=== PATIENT | male | born 1965 | race Two or more races ===

== ENCOUNTER 2019-01-23 10:51 | Inpatient (IN) | payer BC, OTHER ==
[~2019-01-23] VITALS: Ht 175.3 cm; Wt 68.1 kg
[2019-01-23 12:02] LABS: Basophils # (auto) 0.1 uL; Basophils % (auto) 0.3 % (0.0-2.0); Eosinophils # (auto) 0 uL; Hematocrit 41.4 % (41.0-53.0); Hemoglobin 13.3 g/dL (13.5-17.5); Lymphocytes # (auto) 0.3 uL; Lymphocytes % (auto) 1.7 % (10.0-50.0); Mean Corpuscular Hemoglobin 29.2 pg (28.0-32.0); Mean Corpuscular Hgb Conc. 32.1 g/dL (32.0-36.0); Monocytes # (auto) 0.6 uL; Monocytes % (auto) 3.5 % (0.0-12.0); Neutrophils # (auto) 15.1 uL; Neutrophils % (auto) 94.5 % (37.0-80.0); Platelet Count (auto) 426 10^3/uL (140-450); Red Blood Cells 4.55 10^6/uL (4.5-5.90); Red Cell Distribution Width 14.2 % (11.8-14.3)
[2019-01-23 12:18] LABS: Albumin 1.8 g/dL (3.4-5.0); Calcium 9.8 mg/dL (8.5-10.1); Potassium 4.1 mmol/L (3.5-5.1)
[2019-01-23 12:20] LABS: BUN/Creatinine Ratio 26.1; Bilirubin, Total 0.5 mg/dL (0.2-1.0); Total Protein 7.2 g/dL (6.4-8.2)
[2019-01-23] MEDS ORDERED: InsuLIN R (HUMAN) 100 UNITS in SODIUM CHL 0.9% 99 ML IV SCH (20:26)
[2019-01-23] MEDS ORDERED: SODIUM CHLORIDE 0.9% 1,000 ML IVB ONE (20:26)
[2019-01-23] MEDS ORDERED: SODIUM CHLORIDE 0.9% 1,000 ML IV ONE (20:30)
[2019-01-23] MEDS ORDERED: cefTRIAXone 1GM/50ML D5W 50 ML IV ONE (20:30)
[2019-01-23] MEDS ORDERED: DEXTROSE (50%) 50ML SYRG IV PRN (20:30)
[2019-01-23] MEDS ORDERED: CLINDAMYCIN 600MG IV 50 ML IV ONE (21:45)
[2019-01-23] MEDS ORDERED: TETANUS-DIPTH-ACEL PERTUSSIS 0.5ML SYRG IM ONE (21:45)
[2019-01-23 22:23] LABS: Magnesium 2.4 mg/dL (1.6-2.6)
[2019-01-23] MEDS: ACCU-CHEK COMFORT CURVE STRIP VI SCH ×2 (22:36→22:48)
[2019-01-23 22:52] LABS: BUN/Creatinine Ratio 30.2; Potassium 4.2 mmol/L (3.5-5.1)
[2019-01-23 22:53] LABS: INR 1.05 (0.9-1.15); Partial Thromboplastin Time 28.6 sec (23.78-33.04); Prothrombin Time 11.2 sec (9.27-12.13)
[2019-01-24] MEDS: ACCU-CHEK COMFORT CURVE STRIP VI SCH ×17 (00:30→20:00)
[2019-01-24] MEDS ORDERED: SODIUM CHLORIDE 0.9% 1,000 ML IV SCH (02:26)
[2019-01-24 02:48] LABS: Calcium 8.1 mg/dL (8.5-10.1); Potassium 3.5 mmol/L (3.5-5.1)
[2019-01-24] MEDS: InsuLIN R (HUMAN) 100 UNITS in SODIUM CHL 0.9% 99 ML IV SCH ×2 (02:53→03:00)
[2019-01-24] MEDS ORDERED: ONDANSETRON HCL 4 MG/2 ML VIAL IV PRN (03:00)
[2019-01-24] MEDS ORDERED: HYDROcodone-ACET 5/325MG TAB PO PRN (03:00)
[2019-01-24] MEDS ORDERED: NITROGLYCERIN 0.4 MG SL TAB SL PRN (03:00)
[2019-01-24] MEDS ORDERED: MORPHINE SULFATE 4 MG/ML SYR/VIAL IV PRN (03:00)
[2019-01-24] MEDS ORDERED: VANCOMYCIN PER PHARMACY 0 MG IV SCH (03:00)
[2019-01-24] MEDS ORDERED: DEXTROSE (50%) 50ML SYRG IV PRN ×3 (03:00→19:00)
[2019-01-24] MEDS ORDERED: VANCOMYCIN 1GM/250ML 250 ML IV ONE (04:00)
[2019-01-24] MEDS: SODIUM CHLORIDE 0.9% 1,000 ML IV SCH ×3 (04:40→17:13)
[2019-01-24] MEDS: ACETAMINOPHEN 325 MG TAB PO PRN (05:49)
[2019-01-24] MEDS: PIPERACILLIN-TAZOB 3.375GM 100 ML IV SCH ×3 (07:16→18:47)
[2019-01-24] MEDS: FAMOTIDINE 20 MG TAB PO SCH ×2 (10:31→22:25)
[2019-01-24 10:42] LABS: Potassium 3.4 mmol/L (3.5-5.1)
[2019-01-24 10:47] LABS: BUN/Creatinine Ratio 31.6
[2019-01-24] MEDS ORDERED: INSULIN LANTUS (GLARGINE) 1 /0.01ml (100units/ml) SC ONE (14:45)
[2019-01-24] MEDS: InsuLIN REG 1unit/0.01ml Soln (100units/ml) SC SCH ×5 (15:53→20:00)
[2019-01-24 16:33] LABS: Potassium 3.7 mmol/L (3.5-5.1)
[2019-01-24 16:34] LABS: BUN/Creatinine Ratio 31.8; Calcium 8.2 mg/dL (8.5-10.1)
[2019-01-24] MEDS: VANCOMYCIN 1,250 MG in D5W 5% 250 ML IV SCH (17:29)
[2019-01-25] MEDS: SODIUM CHLORIDE 0.9% 1,000 ML IV SCH ×4 (00:28→22:29)
[2019-01-25] MEDS: InsuLIN R (HUMAN) 100 UNITS in SODIUM CHL 0.9% 99 ML IV SCH (02:53)
[2019-01-25] MEDS: InsuLIN REG 1unit/0.01ml Soln (100units/ml) SC SCH ×6 (04:00→21:00)
[2019-01-25] MEDS: ACCU-CHEK COMFORT CURVE STRIP VI SCH ×6 (04:29→20:55)
[2019-01-25] MEDS: VANCOMYCIN 1,250 MG in D5W 5% 250 ML IV SCH ×2 (05:04→17:59)
[2019-01-25] MEDS: PIPERACILLIN-TAZOB 3.375GM 100 ML IV SCH ×4 (06:00→18:00)
[2019-01-25 06:07] LABS: Albumin 1.3 g/dL (3.4-5.0); Calcium 8.3 mg/dL (8.5-10.1); Magnesium 2.3 mg/dL (1.6-2.6); Potassium 3.3 mmol/L (3.5-5.1)
[2019-01-25 06:11] LABS: BUN/Creatinine Ratio 29.6; Bilirubin, Total 0.4 mg/dL (0.2-1.0); Total Protein 5.5 g/dL (6.4-8.2)
[2019-01-25 06:13] LABS: Hematocrit 31.8 % (41.0-53.0); Hemoglobin 10.4 g/dL (13.5-17.5); Mean Corpuscular Hemoglobin 28.7 pg (28.0-32.0); Mean Corpuscular Hgb Conc. 32.8 g/dL (32.0-36.0); Mean Corpuscular Volume 87.5 fL (80.0-100.0); Platelet Count (auto) 342 10^3/uL (140-450); Red Blood Cells 3.63 10^6/uL (4.5-5.90); Red Cell Distribution Width 13.8 % (11.8-14.3); White Blood Cell 13.7 10^3/uL (4.4-10.8)
[2019-01-25 06:22] LABS: Basophils % (manual) 0 (0.0-2.0); Blast Cells 0; Metamyelocytes % 0; Myelocytes % 0; Promyelocytes % 0; Reactive Lymphocytes 0
[2019-01-25 09:11] LABS: Band Neutrophils % (manual) 15; Lymphocytes % (manual) 20 (10.0-50.0); Monocytes % (manual) 1 (0-12)
[2019-01-25 09:12] LABS: Eosinophils % (manual) 1 (0-7)
[2019-01-25] MEDS: FAMOTIDINE 20 MG TAB PO SCH ×2 (10:24→23:00)
[2019-01-25] MEDS ORDERED: INSULIN LANTUS (GLARGINE) 1 /0.01ml (100units/ml) SC ONE (11:30)
[2019-01-25 22:28] LABS: Urine Bacteria NONE SEEN /hpf (None Seen); Urine Blood Negative /uL (Negative); Urine Specific Gravity 1.014 (1.001-1.035); Urine WBC 3 /hpf (0 - 3)
[2019-01-25 22:35] LABS: Alcohol, Urine < 3.0 mg/dL (0-5); Amphetamine Screen, Urine NEGATIVE (NEGATIVE); Barbiturate Scree,Urine NEGATIVE (NEGATIVE); Benzodiazephine Screen, Urine NEGATIVE (NEGATIVE); Cannabinoid Screen, Urine NEGATIVE (NEGATIVE); Cocaine Screen, Urine NEGATIVE (NEGATIVE); Opiate Scree,Urine NEGATIVE (NEGATIVE); Phencyclidine Screen, Urine NEGATIVE (NEGATIVE)
[2019-01-25] MEDS: TEMAZEPAM 15 MG CAP PO PRN (23:11)
[2019-01-26] MEDS: ACCU-CHEK COMFORT CURVE STRIP VI SCH ×6 (00:24→20:59)
[2019-01-26] MEDS: InsuLIN REG 1unit/0.01ml Soln (100units/ml) SC SCH ×6 (00:28→21:06)
[2019-01-26] MEDS: PIPERACILLIN-TAZOB 3.375GM 100 ML IV SCH ×3 (00:40→18:00)
[2019-01-26] MEDS: VANCOMYCIN 1,250 MG in D5W 5% 250 ML IV SCH (05:15)
[2019-01-26 05:58] LABS: Basophils # (auto) 0 uL; Basophils % (auto) 0.1 % (0.0-2.0); Eosinophils # (auto) 0.1 uL; Eosinophils % (auto) 0.4 % (0.0-7.0); Hematocrit 31.1 % (41.0-53.0); Hemoglobin 10.4 g/dL (13.5-17.5); Lymphocytes # (auto) 0.7 uL; Lymphocytes % (auto) 4.9 % (10.0-50.0); Mean Corpuscular Hemoglobin 29.3 pg (28.0-32.0); Mean Corpuscular Hgb Conc. 33.5 g/dL (32.0-36.0); Mean Corpuscular Volume 87.4 fL (80.0-100.0); Monocytes # (auto) 0.4 uL; Neutrophils # (auto) 13.7 uL; Neutrophils % (auto) 91.6 % (37.0-80.0); Platelet Count (auto) 320 10^3/uL (140-450); Red Blood Cells 3.56 10^6/uL (4.5-5.90); Red Cell Distribution Width 13.9 % (11.8-14.3); White Blood Cell 14.9 10^3/uL (4.4-10.8)
[2019-01-26 06:13] LABS: BUN/Creatinine Ratio 22.1; Calcium 7.6 mg/dL (8.5-10.1)
[2019-01-26] MEDS: INSULIN LANTUS (GLARGINE) 1 /0.01ml (100units/ml) SC SCH (07:33)
[2019-01-26] MEDS: SODIUM CHLORIDE 0.9% 1,000 ML IV SCH ×2 (08:26→17:52)
[2019-01-26 09:43] LABS: Urine Bacteria NONE SEEN /hpf (None Seen); Urine Blood Negative /uL (Negative); Urine Specific Gravity 1.013 (1.001-1.035); Urine WBC 5 /hpf (0 - 3)
[2019-01-26] MEDS: FAMOTIDINE 20 MG TAB PO SCH ×2 (10:38→21:35)
[2019-01-26] MEDS ORDERED: ceFAZolin 1GM VL ONE ×2 (11:01→11:10)
[2019-01-26] MEDS ORDERED: ceFAZolin 1GM/50ML 50 ML IV ONE (11:02)
[2019-01-26] MEDS ORDERED: LIDOCAINE 2% (LOCAL ANESTH.) PF 5ml SDV ONE (11:04)
[2019-01-26] MEDS ORDERED: MIDAZOLAM HCL 1MG/1ML-2 ML VIAL ONE (11:05)
[2019-01-26] MEDS ORDERED: fentaNYL CITRATE 100 MCG/2 ML VL ONE (11:07)
[2019-01-26] MEDS ORDERED: PROPOFOL 10 MG/ML 20 ML IV ONE ×2 (11:07→11:30)
[2019-01-26] MEDS ORDERED: HYDROmorphone HCL 2 MG/ML VL IV PRN (12:00)
[2019-01-26] MEDS ORDERED: ONDANSETRON HCL 4 MG/2 ML VIAL IV ONE (12:00)
[2019-01-26] MEDS ORDERED: LABETALOL HCL 5 MG/ML 4ML SYRINGE IV PRN (12:00)
--- NOTE | 2019-01-26 14:00 | NUR ---
S/P OR assessment Received reports from Zuleyka COACH WIRER. Patient to room 208 following O.R. procedure S/P I&D left foot performed by Dr. De Santiago. Vital signs taken, surgical site assessed for redness, swelling, or bleeding. With post op dressing intact left foot noted some serosanguinous output. Patient instructed on need to inform staff immediately for any pain, swelling, bleeding. Patient verbalized understanding.
[2019-01-26] MEDS: VANCOMYCIN 1GM/250ML 250 ML IV SCH (16:46)
[2019-01-26] MEDS ORDERED: POTASSIUM EFFERVESENT TAB 25 MEQ PO ONE (17:15)
--- NOTE | 2019-01-26 18:44 | NUR ---
Post op dressing on the left foot noted to be soaked with serosanguinous output, reinforced the dressing. Will continue care.
[2019-01-26] MEDS: TEMAZEPAM 15 MG CAP PO PRN (21:35)
[2019-01-26 22:00] VITALS: BP 110/63
[2019-01-27] MEDS: ACCU-CHEK COMFORT CURVE STRIP VI SCH ×6 (00:14→20:09)
[2019-01-27] MEDS: PIPERACILLIN-TAZOB 3.375GM 100 ML IV SCH ×4 (00:15→18:00)
[2019-01-27] MEDS: InsuLIN REG 1unit/0.01ml Soln (100units/ml) SC SCH ×6 (00:27→20:09)
[2019-01-27] MEDS: SODIUM CHLORIDE 0.9% 1,000 ML IV SCH ×3 (03:30→22:57)
[2019-01-27] MEDS: VANCOMYCIN 1GM/250ML 250 ML IV SCH ×2 (05:01→16:15)
--- NOTE | 2019-01-27 05:20 | NUR ---
talked to hospitalmelissa gooden. hospitalist stated she will endorse to day shift hospitalist. I will endorse to day shift rn Addendum: 01/27/19 at 0621 by Stacey Plummer RN pt still has gram positive cocci in the blood
[2019-01-27 05:34] VITALS: BP 108/67
[2019-01-27] MEDS: INSULIN LANTUS (GLARGINE) 1 /0.01ml (100units/ml) SC SCH (06:39)
--- NOTE | 2019-01-27 06:48 | NUR ---
Post op dressing on the left foot noted to be soaked with serosanguinous output, reinforced the dressing. Will continue care.
--- NOTE | 2019-01-27 07:30 | NUR ---
Report received. Patient lying in bed. No S/S distress. Call light in reach. Dressing noted right foot. Will continue to monitor.
--- NOTE | 2019-01-27 08:00 | NUR ---
WOUND CARE NOTE: PATIENT IS S/P I&D ABSCESS TO THE LEFT FOOT YESTERDAY. DR. MCKEON HAS WRITTEN FOR EVERY OTHER DAY POST OPERATIVE DRESSING CHANGE ORDERS, STARTING Monday01/28/19. WILL DEFER ALL WOUND CARE RECOMMENDATIONS TO DR. MCKEON FOR THIS PATIENT. NO WOUND CARE MONITORING NEEDED AT THIS TIME.
[2019-01-27 08:49] LABS: Hematocrit 32.9 % (41.0-53.0); Hemoglobin 10.8 g/dL (13.5-17.5); Mean Corpuscular Hemoglobin 28.5 pg (28.0-32.0); Mean Corpuscular Hgb Conc. 32.7 g/dL (32.0-36.0); Mean Corpuscular Volume 87.1 fL (80.0-100.0); Platelet Count (auto) 310 10^3/uL (140-450); Red Blood Cells 3.78 10^6/uL (4.5-5.90); Red Cell Distribution Width 13.9 % (11.8-14.3); White Blood Cell 13.8 10^3/uL (4.4-10.8)
[2019-01-27 09:00] VITALS: BP 121/68
[2019-01-27 09:05] LABS: BUN/Creatinine Ratio 15.4; Calcium 7.5 mg/dL (8.5-10.1); Potassium 3.3 mmol/L (3.5-5.1)
[2019-01-27 09:22] LABS: Basophils % (manual) 0 (0.0-2.0); Blast Cells 0; Metamyelocytes % 0; Myelocytes % 0; Promyelocytes % 0; Reactive Lymphocytes 0
[2019-01-27] MEDS: FAMOTIDINE 20 MG TAB PO SCH ×2 (10:26→21:20)
--- NOTE | 2019-01-27 11:00 | NUR ---
Patient is resting quietly. Call light in reach. No complaints at this time.
[2019-01-27 11:53] LABS: Band Neutrophils % (manual) 8; Eosinophils % (manual) 1 (0-7); Lymphocytes % (manual) 6 (10.0-50.0); Monocytes % (manual) 12 (0-12)
--- NOTE | 2019-01-27 15:00 | NUR ---
Dressing to right foot soaked. Patient's requesting the dressing be changed. Wet Kerlix removed. Foot wrapped with 2 rolls large Kerlix.
[2019-01-27] MEDS ORDERED: POTASSIUM EFFERVESENT TAB 25 MEQ PO ONE (15:45)
[2019-01-27 17:00] VITALS: BP 125/73
--- NOTE | 2019-01-27 18:30 | NUR ---
Patient eating dinner. No complaints at this time.
[2019-01-27] MEDS: TEMAZEPAM 15 MG CAP PO PRN (21:20)
[2019-01-27 23:23] VITALS: BP 118/69
[2019-01-28] MEDS: PIPERACILLIN-TAZOB 3.375GM 100 ML IV SCH ×3 (00:21→11:48)
[2019-01-28] MEDS: InsuLIN REG 1unit/0.01ml Soln (100units/ml) SC SCH ×7 (00:21→21:58)
[2019-01-28] MEDS: ACCU-CHEK COMFORT CURVE STRIP VI SCH ×7 (00:22→21:59)
--- NOTE | 2019-01-28 04:45 | NUR ---
CALLED LAB TO FOLLOW UP WITH AMAURY KING DUE AT 0400. TECH STATED THAT IT IS BEING PROCESSED.
[2019-01-28 04:54] LABS: Basophils # (auto) 0 uL; Basophils % (auto) 0.2 % (0.0-2.0); Eosinophils # (auto) 0.1 uL; Eosinophils % (auto) 0.9 % (0.0-7.0); Hematocrit 29.7 % (41.0-53.0); Hemoglobin 9.7 g/dL (13.5-17.5); Lymphocytes # (auto) 1.2 uL; Lymphocytes % (auto) 10.4 % (10.0-50.0); Mean Corpuscular Hemoglobin 28.9 pg (28.0-32.0); Mean Corpuscular Hgb Conc. 32.9 g/dL (32.0-36.0); Mean Corpuscular Volume 87.8 fL (80.0-100.0); Monocytes # (auto) 0.8 uL; Neutrophils # (auto) 9.4 uL; Neutrophils % (auto) 81.5 % (37.0-80.0); Platelet Count (auto) 275 10^3/uL (140-450); Red Blood Cells 3.38 10^6/uL (4.5-5.90); White Blood Cell 11.5 10^3/uL (4.4-10.8)
[2019-01-28 05:01] LABS: BUN/Creatinine Ratio 15.7; Calcium 7.2 mg/dL (8.5-10.1); Potassium 3.3 mmol/L (3.5-5.1)
--- NOTE | 2019-01-28 05:23 | NUR ---
VANCOMYCIN 0500 DOSE HAS NOT BEEN ADMINISTERED; PENDING 0400 TROUGH.
[2019-01-28 05:31] VITALS: BP 111/71
[2019-01-28] MEDS: INSULIN LANTUS (GLARGINE) 1 /0.01ml (100units/ml) SC SCH (06:47)
[2019-01-28] MEDS: VANCOMYCIN 1GM/250ML 250 ML IV SCH (06:47)
--- NOTE | 2019-01-28 07:45 | NUR ---
Morning note patient resting in bed with even and unlabored respirations, no distress noted. Instructed patient on POC, fall precautions and to call for assistance as needed. patient verbalized understanding. Fall precautions in place with call light within reach. Dressing to the left foot has drainage present. Will change dressing this shift per MD's orders. No odor noted. Will continue to monitor q1hr & PRN.
[2019-01-28 09:00] VITALS: BP 114/71
[2019-01-28] MEDS: SODIUM CHLORIDE 0.9% 1,000 ML IV SCH ×2 (09:30→15:09)
[2019-01-28] MEDS: FAMOTIDINE 20 MG TAB PO SCH ×2 (09:39→21:58)
[2019-01-28] MEDS ORDERED: HYDROcodone-ACET 5/325MG TAB PO PRN (12:30)
[2019-01-28] MEDS ORDERED: POTASSIUM CHL 20 Meq TABLET PO ONE (12:30)
[2019-01-28] MEDS ORDERED: DEXTROSE (50%) 50ML SYRG IV PRN (12:30)
[2019-01-28] MEDS ORDERED: LEVOFLOXACIN 750MG 150 ML IV ONE (12:30)
[2019-01-28 13:00] VITALS: BP 107/73
--- NOTE | 2019-01-28 13:05 | NUR ---
NUTRITION ASSESSMENT NOTES Please refer to link notes of nutrition screen form filed under the intervention section of the plan of care for further details. Est. Needs: 1650 kcal to 2050 kcal (25-30 kcal/kgBW), 82 gms to 114 gms pro (1.0-1.4 gms/kgBW d/t severe hypoalbuminemia, wound healing). Will continue to monitor pertinent labs and reassess nutrient need prn Thank you. Addendum: 01/28/19 at [address] Amended: Links added.
--- NOTE | 2019-01-28 14:44 | NUR ---
Orders received updated Dr. Link that patient has c/o constipation. Orders received and read back to verify.
[2019-01-28] MEDS ORDERED: LACTULOSE 20Gm/30ML SOLN PO PRN (14:45)
--- NOTE | 2019-01-28 15:48 | NUR ---
Dressing changed to the left foot per MD's orders Dressing had drainage present. Drainage yellow in color. No foul odor present. Wound cleansed with wound cleanser and patted dry. Wound care photos taken. I&D area packed with Iodoform 1/2" per MD's orders. Wound wrapped in kerlix. Bed returned to low position. Call light within reach. Patient refused pain medication at this time. Instructed patient to notify staff if pain medications is needed. patient verbalized understanding.
--- NOTE | 2019-01-28 16:34 | NUR ---
Called - Dr. De Santiago Called Dr. De Santiago's office to notify that patient had questions regarding POC. Spoke with Lynnette.
--- NOTE | 2019-01-28 16:46 | NUR ---
Spoke with MD Spoke with Dr. De Santiago. Updated MD on patient's status and that patient had questions on POC. MD verbalized understanding.
[2019-01-28 17:00] VITALS: BP 132/82
[2019-01-28] MEDS ORDERED: VANCOMYCIN 1,250 MG in D5W 5% 250 ML IV SCH (17:00)
--- NOTE | 2019-01-28 17:10 | NUR ---
Scheduled medication not available called pharmacy to notify. Medication to be sent to the unit per gerald Hernandez tech.
--- NOTE | 2019-01-28 18:49 | NUR ---
End of shift patient resting in bed with even and unlabored respirations, no distress noted. Fall precautions in place with bed in low locked position with call light within reach. Patient able to turn self independently. patient educated on pressure ulcer prevention. Patient verbalized understanding. Will endorse care to RN.
--- NOTE | 2019-01-28 19:15 | NUR ---
ASSUMED PATIENT CARE- NOC SHIFT NO S/SX OF DISTRSS, SOB OR PAIN. PATIENT RESTING COMFORTABLE IN BED WATCHING TELEVISION. BEDSIDE TABLE IN LOWEST POSITION, BED RAILS UP X2, BEDSIDE TABLE WITHIN REACH, CALL LIGHT WITHIN REACH. DISCUSSED POC WITH PATIENT AND INSTRUCTED PATIENT TO CALL PRN; PATIENT VERBALIZED UNDERSTANDING. WILL CONTINUE O MONITOR Q1H AND PRN.
--- NOTE | 2019-01-28 19:26 | NUR ---
Care endorsed to Iva Driver RN.
[2019-01-28] MEDS: DOCUSATE SOD 100 MG CAP PO SCH (21:58)
[2019-01-28] MEDS: TEMAZEPAM 15 MG CAP PO PRN (21:59)
[2019-01-28 22:00] VITALS: BP 134/70
[2019-01-29] MEDS: SODIUM CHLORIDE 0.9% 1,000 ML IV SCH ×2 (03:39→17:06)
[2019-01-29 04:44] LABS: Basophils # (auto) 0.1 uL; Basophils % (auto) 0.8 % (0.0-2.0); Eosinophils # (auto) 0.1 uL; Eosinophils % (auto) 0.9 % (0.0-7.0); Lymphocytes % (auto) 10.5 % (10.0-50.0); Mean Corpuscular Hemoglobin 29.3 pg (28.0-32.0); Mean Corpuscular Hgb Conc. 33.3 g/dL (32.0-36.0); Mean Corpuscular Volume 87.9 fL (80.0-100.0); Monocytes # (auto) 0.6 uL; Monocytes % (auto) 5.9 % (0.0-12.0); Neutrophils # (auto) 8.1 uL; Neutrophils % (auto) 81.9 % (37.0-80.0); Nucleated Red Blood Cells % 0.1 %; Platelet Count (auto) 306 10^3/uL (140-450); Red Blood Cells 3.41 10^6/uL (4.5-5.90); Red Cell Distribution Width 14.2 % (11.8-14.3); White Blood Cell 9.9 10^3/uL (4.4-10.8)
[2019-01-29 05:00] VITALS: BP 131/79
[2019-01-29 05:15] LABS: BUN/Creatinine Ratio 17.7; Calcium 7.3 mg/dL (8.5-10.1); Potassium 4.3 mmol/L (3.5-5.1)
[2019-01-29] MEDS: InsuLIN REG 1unit/0.01ml Soln (100units/ml) SC SCH ×4 (06:41→21:47)
[2019-01-29] MEDS: ACCU-CHEK COMFORT CURVE STRIP VI SCH ×4 (06:41→21:48)
[2019-01-29] MEDS ORDERED: INSULIN LANTUS (GLARGINE) 1 /0.01ml (100units/ml) SC SCH (07:00)
--- NOTE | 2019-01-29 07:10 | NUR ---
Morning note patient resting in bed with even and unlabored respirations, no distress noted. Instructed patient on POC, fall precautions and to call for assistance as needed. patient verbalized understanding. Fall precautions in place with call light within reach. Will continue to monitor q1hr & PRN.
--- NOTE | 2019-01-29 07:29 | NUR ---
Change DRESSING 01/30/[address] De Santiago is at bedside per Dr. De Santiago.
--- NOTE | 2019-01-29 07:29 | NUR ---
was at bedside - Dr. De Santiago Discussing POC with the patient and this RN.
[2019-01-29 09:00] VITALS: BP 139/79
--- NOTE | 2019-01-29 09:59 | NUR ---
Paged the PICC line/Midline RN
[2019-01-29] MEDS: DOCUSATE SOD 100 MG CAP PO SCH ×2 (10:00→21:46)
[2019-01-29] MEDS: ENOXAPARIN SOD 40 MG/0.4 ML SYRINGE SC SCH (10:04)
[2019-01-29] MEDS: LEVOFLOXACIN 750MG 150 ML IV SCH (10:04)
[2019-01-29] MEDS: FAMOTIDINE 20 MG TAB PO SCH (10:04)
[2019-01-29 11:55] LABS: INR 1.06 (0.9-1.15); Prothrombin Time 11.3 sec (9.27-12.13)
[2019-01-29] MEDS ORDERED: PANTOPRAZOLE 40 MG TAB PO ONE (12:45)
[2019-01-29 13:00] VITALS: BP 125/78
--- NOTE | 2019-01-29 15:22 | NUR ---
PICC line placement Patient/Patient significant other educated on need for PICC line placement. All risks and benefits explained and all questions and concerns addressed prior to procedure. Noted past medical history and allergies with no contraindications. INR and Plt counts within acceptable range. 4 fr PICC line inserted via right basilic vein using [employer] US and Tip Location System. Sterile technique with maximum barrier precautions utilized. Blood return obtained from the lumen and flushed easily with NS using proper technique. PICC secured with Stat-lock; biodisc and occlusive dressing applied. Stat portable chest x-ray obtained for PICC tip placement. *Baseline Arm Circumference 29cm. Internal length 40cm. External length 1cm. PICC lot # [id number]. Note: Placed easily x1 attempt
[2019-01-29] MEDS ORDERED: LIDOCAINE 1% (LOCAL ANESTH.) PF 5ml SDV ID ONE (15:30)
--- NOTE | 2019-01-29 15:31 | NUR ---
OK to use PICC line Xray completed. OK to use PICC line.
[2019-01-29 17:00] VITALS: BP 119/79
--- NOTE | 2019-01-29 17:48 | NUR ---
Dressing to the left foot changed; packing left in place Dressing to the left foot changed due to serous drainage saturating the dressing. Absorbant pad placed and wrapped with kerlix. The packing left in place per MD's orders for packing to be changed EOD. Bed returned to low position. Call light within reach. Patient's spouse at bedside.
[2019-01-29] MEDS: Pro-Stat SF 30ml Vanilla PO SCH (18:50)
--- NOTE | 2019-01-29 19:00 | NUR ---
Care endorsed to Iva Driver RN.
[2019-01-29] MEDS: ASCORBIC ACID 500 MG TAB PO SCH (21:46)
[2019-01-29] MEDS: SODIUM CHLOR 0.9% PF (SALINE LOCK) 10ML VIAL/SYR IV SCH (21:46)
[2019-01-29 22:00] VITALS: BP 116/63
[2019-01-30 05:00] VITALS: BP 124/76
[2019-01-30] MEDS: InsuLIN REG 1unit/0.01ml Soln (100units/ml) SC SCH ×4 (06:43→21:44)
[2019-01-30] MEDS: ACCU-CHEK COMFORT CURVE STRIP VI SCH ×4 (06:43→21:44)
[2019-01-30] MEDS: INSULIN LANTUS (GLARGINE) 1 /0.01ml (100units/ml) SC SCH (06:43)
[2019-01-30] MEDS: SODIUM CHLORIDE 0.9% 1,000 ML IV SCH ×2 (06:44→21:44)
[2019-01-30] MEDS: Pro-Stat SF 30ml Vanilla PO SCH ×2 (08:00→18:00)
[2019-01-30 09:01] VITALS: BP 127/72
[2019-01-30] MEDS: LEVOFLOXACIN 750MG 150 ML IV SCH (09:50)
[2019-01-30] MEDS: SODIUM CHLOR 0.9% PF (SALINE LOCK) 10ML VIAL/SYR IV SCH ×2 (10:00→21:32)
[2019-01-30] MEDS ORDERED: MULTIPLE VITAMINS W/ MINERALS TAB PO SCH (10:00)
[2019-01-30] MEDS: DOCUSATE SOD 100 MG CAP PO SCH ×2 (10:00→21:32)
[2019-01-30] MEDS ORDERED: PANTOPRAZOLE 40 MG TAB PO SCH (10:00)
[2019-01-30] MEDS: ENOXAPARIN SOD 40 MG/0.4 ML SYRINGE SC SCH (10:00)
[2019-01-30] MEDS: ASCORBIC ACID 500 MG TAB PO SCH ×2 (10:00→21:31)
[2019-01-30] MEDS ORDERED: LIDOCAINE VISCOUS 2% 15ML UD ONE (11:28)
[2019-01-30] MEDS ORDERED: NALOXONE HCL 0.4 MG/ML VIAL ONE (11:28)
[2019-01-30] MEDS ORDERED: FLUMAZENIL 0.1 MG/ML INJ 10ML MDV IV ONE (11:28)
[2019-01-30] MEDS ORDERED: diphenhdrAMINE HCL 50 MG/1 ML VL ONE (11:29)
[2019-01-30] MEDS ORDERED: SODIUM CHLORIDE LOCK 10 ML ONE (11:29)
[2019-01-30] MEDS: fentaNYL CITRATE 100 MCG/2 ML VL ONE ×2 (11:45→11:48)
[2019-01-30] MEDS: MIDAZOLAM HCL 5 MG/ML-1ML VIAL ONE ×2 (11:45→11:48)
[2019-01-30 13:00] VITALS: BP 123/77
--- NOTE | 2019-01-30 15:30 | NUR ---
DRESSING CHANGE Dr. De Santiago at bedside, to assess left foot. Iodoform packing removed and moderate amount of purulent drainage seeped out of wound. Cleansed with wound cleanser and packed with new iodoform, covered with absorbant pad, wrapped with kirlex. Patient tolerated well.
[2019-01-30 17:00] VITALS: BP 130/72
[2019-01-30] MEDS: PANTOPRAZOLE 40 MG TAB PO SCH (21:31)
[2019-01-30] MEDS: TEMAZEPAM 15 MG CAP PO PRN (21:32)
[2019-01-30 22:00] VITALS: BP 117/61
[2019-01-31 05:00] VITALS: BP 112/58
[2019-01-31 05:35] LABS: Basophils # (auto) 0 uL; Basophils % (auto) 0.3 % (0.0-2.0); Eosinophils # (auto) 0.1 uL; Eosinophils % (auto) 0.4 % (0.0-7.0); Hematocrit 27.2 % (41.0-53.0); Hemoglobin 9.1 g/dL (13.5-17.5); Lymphocytes # (auto) 1.1 uL; Mean Corpuscular Hemoglobin 29.2 pg (28.0-32.0); Mean Corpuscular Hgb Conc. 33.4 g/dL (32.0-36.0); Mean Corpuscular Volume 87.3 fL (80.0-100.0); Monocytes # (auto) 0.5 uL; Monocytes % (auto) 3.8 % (0.0-12.0); Neutrophils # (auto) 10.8 uL; Neutrophils % (auto) 86.5 % (37.0-80.0); Platelet Count (auto) 396 10^3/uL (140-450); Red Blood Cells 3.12 10^6/uL (4.5-5.90); Red Cell Distribution Width 14.3 % (11.8-14.3); White Blood Cell 12.5 10^3/uL (4.4-10.8)
[2019-01-31 05:54] LABS: BUN/Creatinine Ratio 18.5; Calcium 7.1 mg/dL (8.5-10.1); Potassium 3.7 mmol/L (3.5-5.1)
[2019-01-31] MEDS: ACCU-CHEK COMFORT CURVE STRIP VI SCH ×4 (06:41→21:25)
[2019-01-31] MEDS: INSULIN LANTUS (GLARGINE) 1 /0.01ml (100units/ml) SC SCH (06:41)
[2019-01-31] MEDS: InsuLIN REG 1unit/0.01ml Soln (100units/ml) SC SCH ×4 (06:41→21:24)
--- NOTE | 2019-01-31 07:50 | NUR ---
Opening Shift Note Assumed care of patient, awake, alert, and oriented x4. Patient has no complaints of pain at this time. Patient has right upper arm PICC single lumen patient and flushing well, patient tolerating well. Patient is on room air with no S/S of distress/SOB. Patient has dressing to right foot, moderate amount of serous drainage noted, will change dressing. Instructed on POC and to call for assist PRN, will continue to monitor for changes Q1hr and PRN. Bed in lowest locked position, call light within reach.
[2019-01-31 08:00] VITALS: BP 131/78
[2019-01-31] MEDS: Pro-Stat SF 30ml Vanilla PO SCH ×2 (08:00→17:14)
[2019-01-31] MEDS: LEVOFLOXACIN 750MG 150 ML IV SCH (10:01)
[2019-01-31] MEDS: MULTIPLE VITAMINS W/ MINERALS TAB PO SCH (10:02)
[2019-01-31] MEDS: ASCORBIC ACID 500 MG TAB PO SCH ×2 (10:02→21:24)
[2019-01-31] MEDS: PANTOPRAZOLE 40 MG TAB PO SCH ×2 (10:02→21:24)
[2019-01-31] MEDS: DOCUSATE SOD 100 MG CAP PO SCH ×2 (10:02→21:24)
[2019-01-31] MEDS: SODIUM CHLOR 0.9% PF (SALINE LOCK) 10ML VIAL/SYR IV SCH ×2 (10:02→21:24)
[2019-01-31] MEDS: ENOXAPARIN SOD 40 MG/0.4 ML SYRINGE SC SCH (10:02)
[2019-01-31] MEDS ORDERED: HYDROcodone-ACET 5/325MG TAB PO PRN (10:30)
[2019-01-31] MEDS: SODIUM CHLORIDE 0.9% 1,000 ML IV SCH (11:27)
--- NOTE | 2019-01-31 12:29 | NUR ---
WOUND CARE MODERATE AMOUNT OF SEROUS DRAINAGE NOTED TO LEFT FOOT DRESSING. DRESSING REMOVED. WOUND CLEANSED WITH WOUND CLEANSER, PATTED DRY WITH STERILE GAUZE, COVERED WITH ABD PADS AND WRAPPED WITH KERLIX. PATIENT TOLERATED WELL.
--- NOTE | 2019-01-31 12:46 | NUR ---
I called [facility] [phone] and spoke with Grace, she said they do take [facility] members-faxed clinical information including order to [phone].
--- NOTE | 2019-01-31 13:21 | NUR ---
assessment Patient is a 53 year old male who is alert and oriented. Patients cognitive abilities are intact. Prior to admission patient lived home with family and functioned independently. Patient informed me he is able to care for his own ADLs. Per patient he will return home to his prior living arrangements post discharge and family will transport him home. Patient informed me he has no DME. Patient may need IV ABX on discharge. Patient informed me his is teachable and so is he. Patient informed me he has good family support. I informed patient he has a right to speak to a social sciences instructor regarding all care. I informed patient he has a right to participate in any and all discharge planning. Patient is aware of visiting hours on the hospital floor. I informed patient he has a right to privacy. Patient does not have a POA and advanced directive. I have offered patient information on POA and advanced directives. I informed the patient the advantages and benefits of having an Advanced Directive. Patient verbalized understanding and agreed to discharge plan. Addendum: 02/01/19 at 1323 by Sharri TORRES Amended: Links added.
--- NOTE | 2019-01-31 14:30 | NUR ---
MICROBIOLOGY RECEIVED CALL FROM MICROBIOLOGY THAT PATIENT'S BLOOD CULTURE CAME BACK POSITIVE FOR GRAM POSITIVE COCCI IN CLUSTERS. PAGED DR. VEGA TO MAKE AWARE.
--- NOTE | 2019-01-31 14:40 | NUR ---
RETURNED CALL DR. VEGA RETURNED CALL REGARDING POSITIVE BLOOD CULTURE. MADE AWARE. PER MD, PATIENT TO BE NPO AFTER MIDNIGHT AND CONSENT FOR ANOTHER INCISION AND DRAINAGE OF LEFT FOOT BY DR. MCKEON TOMORROW. ORDERS READ BACK AND VERIFIED.
--- NOTE | 2019-01-31 16:34 | NUR ---
Address provided by YARI Ventura [address] [place]. Contact [facility] with
--- NOTE | 2019-01-31 18:16 | NUR ---
AT BEDSIDE DR. MCKEON AT BEDSIDE DISCUSSING POC WITH PATIENT. PER MD, PROCEDURE TO BE SCHEDULED FOR 12 TOMORROW. PUBLIC ADDRESS SYSTEM MECHANIC MADE AWARE.
--- NOTE | 2019-01-31 19:01 | NUR ---
END OF SHIFT PATIENT RESTING IN BED. NO S/S OF DISTRESS. INSTRUCTED PATIENT TO CALL PRN. BED IN LOWEST LOCKED POSITION, CALL LIGHT WITHIN REACH. ENDORSED CARE TO NOC RN.
--- NOTE | 2019-01-31 19:45 | NUR ---
Opening Shift Note: A&Ox4, resting in bed. Room air, pain level 0/10, and at baseline ambulates independently without assistive devices; currently SBA to BSC. Bed locked in lowest position, side rails up x2, and call light within reach. PICC in RUE x1 lumen running NS at 60 ml/hr inserted on 01/29/19. Skin: left great toe ulceration WILY: no drainage, black necrotic; top of left foot and medial portion of left foot ulceration with eschar and necrotic tissue. Dressing has drainage present. Will change dressing according to order. POC discussed and questions answered. Patient will be NPO at 0000 for surgical intervention with Dr. De Santiago. Will continue to round and reposition prn.
--- NOTE | 2019-01-31 21:25 | NUR ---
Patient refused 2200 colace.
[2019-01-31 22:00] VITALS: BP 128/75
--- NOTE | 2019-01-31 23:45 | NUR ---
Left foot dressing changed per order. Drainage was purulent with a foul smell. Patient tolerated dressing change well.
--- NOTE | 2019-02-01 | NUR ---
NPO for surgical intervention with Dr. De Santiago.
[2019-02-01] MEDS: TEMAZEPAM 15 MG CAP PO PRN ×2 (00:15→22:47)
[2019-02-01] MEDS: SODIUM CHLORIDE 0.9% 1,000 ML IV SCH ×2 (03:10→22:50)
[2019-02-01 05:17] VITALS: BP 12/69
[2019-02-01 05:37] LABS: Basophils # (auto) 0.1 uL; Basophils % (auto) 0.8 % (0.0-2.0); Eosinophils # (auto) 0.1 uL; Eosinophils % (auto) 0.5 % (0.0-7.0); Hematocrit 25.7 % (41.0-53.0); Hemoglobin 8.8 g/dL (13.5-17.5); Lymphocytes % (auto) 9.7 % (10.0-50.0); Mean Corpuscular Hemoglobin 29.8 pg (28.0-32.0); Mean Corpuscular Hgb Conc. 34.2 g/dL (32.0-36.0); Mean Corpuscular Volume 87.2 fL (80.0-100.0); Monocytes # (auto) 0.4 uL; Monocytes % (auto) 3.9 % (0.0-12.0); Neutrophils # (auto) 8.5 uL; Neutrophils % (auto) 85.1 % (37.0-80.0); Platelet Count (auto) 399 10^3/uL (140-450); Red Blood Cells 2.95 10^6/uL (4.5-5.90); Red Cell Distribution Width 14.2 % (11.8-14.3)
[2019-02-01 05:51] LABS: INR 1.04 (0.9-1.15); Partial Thromboplastin Time 28.4 sec (23.78-33.04); Prothrombin Time 11.1 sec (9.27-12.13)
[2019-02-01 06:06] LABS: Calcium 7.3 mg/dL (8.5-10.1); Potassium 3.7 mmol/L (3.5-5.1)
[2019-02-01 06:08] LABS: BUN/Creatinine Ratio 18.3
--- NOTE | 2019-02-01 06:45 | NUR ---
CHG bath completed per surgical protocol. All linens and gown changed.
[2019-02-01] MEDS: InsuLIN REG 1unit/0.01ml Soln (100units/ml) SC SCH ×4 (07:00→22:00)
--- NOTE | 2019-02-01 07:00 | NUR ---
Blood sugar 136; patient is NPO; lantus 25 units given per order, ISS held related to NPO status
--- NOTE | 2019-02-01 07:30 | NUR ---
Opening Shift Note Assuming care of patient at this time. Patient is awake, alert, and oriented x4. Patient denies pain. Instructed patient on the plan of care for today and procedure planned for approximately noon. Bed is locked and lowered with side rails up x2. Call light within reach. Will continue to monitor.
[2019-02-01 08:00] VITALS: BP 128/68
[2019-02-01] MEDS: Pro-Stat SF 30ml Vanilla PO SCH ×2 (08:00→19:45)
[2019-02-01] MEDS: ACCU-CHEK COMFORT CURVE STRIP VI SCH ×4 (08:08→22:49)
[2019-02-01] MEDS: INSULIN LANTUS (GLARGINE) 1 /0.01ml (100units/ml) SC SCH (08:08)
--- NOTE | 2019-02-01 09:05 | NUR ---
I called [facility], they do not accept [employer] patients. I called [facility] and spoke with Yamile, she said they do not accept [employer] patients. I called [facility] and spoke with Esther, he said they do not accept [employer] patients. I called [facility] and spoke with Tiki, she asked that I fax over information. I faxed home health order to [facility].
--- NOTE | 2019-02-01 09:32 | NUR ---
I called [facility] they do not take [employer] O patients.
--- NOTE | 2019-02-01 09:37 | NUR ---
I spoke with Silvano at [facility], [facility], [facility]ed [facility] health order along with face sheet and H&P to [facility].
[2019-02-01 09:42] VITALS: BP 128/68
[2019-02-01] MEDS: ASCORBIC ACID 500 MG TAB PO SCH ×2 (10:00→22:45)
[2019-02-01] MEDS: MULTIPLE VITAMINS W/ MINERALS TAB PO SCH (10:00)
[2019-02-01] MEDS: PANTOPRAZOLE 40 MG TAB PO SCH ×2 (10:00→22:45)
[2019-02-01] MEDS: DOCUSATE SOD 100 MG CAP PO SCH ×2 (10:00→22:00)
[2019-02-01] MEDS: SODIUM CHLOR 0.9% PF (SALINE LOCK) 10ML VIAL/SYR IV SCH ×2 (10:52→22:50)
[2019-02-01] MEDS: ENOXAPARIN SOD 40 MG/0.4 ML SYRINGE SC SCH (11:09)
[2019-02-01] MEDS: LEVOFLOXACIN 750MG 150 ML IV SCH (11:09)
--- NOTE | 2019-02-01 11:37 | NUR ---
Re: Call to Dr. Lee Called Dr. Lee at this time to inform him of patient's lovenox dose being given this morning. Dr. Lee is aware. Will still perform procedure as scheduled.
--- NOTE | 2019-02-01 12:07 | NUR ---
Re: Patient off Unit Patient was taken down to pre-op at this time. Awaiting return.
[2019-02-01] MEDS ORDERED: ceFAZolin 1GM/50ML 50 ML IV ONE (12:11)
[2019-02-01] MEDS ORDERED: BUPIVACAINE 0.75% INJ 10ML MPV SDV IJ ONE (12:13)
[2019-02-01] MEDS ORDERED: ceFAZolin 1GM VL ONE (12:13)
--- NOTE | 2019-02-01 12:17 | NUR ---
I spoke with Donnie at [facility], he said they won't have nurses available until later next week. I called [facility], there was no answer.
[2019-02-01] MEDS ORDERED: ACCU-CHEK COMFORT CURVE STRIP VI ONE (12:30)
[2019-02-01] MEDS ORDERED: HYDROmorphone HCL 2 MG/ML VL IV PRN ×2 (12:30)
[2019-02-01] MEDS ORDERED: LIDOCAINE 1% INJ PF 5ML AMP ONE (12:30)
[2019-02-01] MEDS ORDERED: NALOXONE HCL 0.4 MG/ML VIAL IV PRN (12:30)
[2019-02-01] MEDS ORDERED: ONDANSETRON HCL 4 MG/2 ML VIAL IV ONE (12:30)
[2019-02-01] MEDS ORDERED: PROPOFOL 10 MG/ML 20 ML IV ONE (12:38)
[2019-02-01] MEDS ORDERED: diphenhdrAMINE HCL 50 MG/1 ML VL ONE (12:39)
[2019-02-01] MEDS ORDERED: MIDAZOLAM HCL 1MG/1ML-2 ML VIAL ONE ×2 (12:39→12:58)
[2019-02-01] MEDS ORDERED: METOCLOPRAMIDE HCL 5MG/ml INJ 2ml VIAL ONE (12:39)
[2019-02-01] MEDS ORDERED: GLYCOPYRROLATE 0.2 MG/ML 1ML VIAL ONE (12:39)
[2019-02-01 13:15] VITALS: BP 124/75
--- NOTE | 2019-02-01 14:51 | NUR ---
Nutrition Follow-up Notes Wt.: 83.0 kg as of yesterday. Pt's on oxygen via nasal cannula, asleep, no signs of distress noted during rounds this morning. Pt's NPO for a procedure today, noted s/p I & D of left ft earlier, likely to resume oral diet with active order for Consistent Carb diet at this time. Est. Needs: 1650 kcal to 2050 kcal (25-30 kcal/kgBW), 82 gms to 114 gms pro (1.0-1.4 gms/kgBW d/t severe hypoalbuminemia, wound healing). Will continue to monitor pertinent labs and reassess nutrient need prn Labs: Gluc 126 H, Na 135 L,Cr 0.60 L, Ca 7.3 L, Tpro 5.5 L, Alb 1.3 L; Hba1c 11.9 H, Trig 187 H, ALP 118 H, HDL 7 L Skin: Augustin scale 19, low risk, pt's left ft DFU per gin clerk. Pls refer to wound care notes 01/31/19 for further details re: tx plans. GI: Pt had 1 BM this morning per gin clerk. PES: Increased nutrient needs r/t impaired skin integrity aeb Cellulitis of left foot,Dehydration,Sepsis severe hypoalbuminemia,wound healing. Altered nutrition related lab values r/t current/chronic medical condition aeb hypokalemia, hyponatremia, elev. HbA1c, Trig, hypocalcemia and severe hypoalbuminemia Will continue to monitor NPO status/PO intake, skin status, pertinent labs and weight trend. F/u in 3 to 5 days. Rec.: 1.) If Albumin level continues trending down, consider Prostat 1 pkt BID. 2.) Consider daily MVI with minerals and Asc acid 500 mgs BID. 3.) If lipid profile remains elev. , consider Low Fat, Low Chol in addition to current therapeutic diet. 4.) Continue close supervision with meals. 5.) Refer to CDE/RD for further nutrition education and weight monitoring upon discharged. 6.) Continue current plan of care.
--- NOTE | 2019-02-01 15:15 | NUR ---
I spoke with Dr Elena regarding the plan of care for this patient, he said patient probably won't be discharged until Monday.
--- NOTE | 2019-02-01 15:51 | NUR ---
Re: Patient's dressing Patient's dressing is becoming saturated with blood. Changed dressing and reinforced. Patient tolerated well. States there is no pain. Will continue to monitor.
[2019-02-01 17:49] VITALS: BP 116/69
--- NOTE | 2019-02-01 18:18 | NUR ---
Call to Dr. Lee Let know that patient's had some bloody drainage. Changed dressing once. is aware. states to continue to reinforce. Will continue to monitor.
--- NOTE | 2019-02-01 19:50 | NUR ---
Closing Note Patient is resting comfortably in bed. Patient denies pain at this time. Dressing to debridement has some bloody drainage. is aware. Will endorse care to the shift supervisor film processing RN.
--- NOTE | 2019-02-01 20:15 | NUR ---
Opening Shift Note: A&Ox4, resting in bed. Room air, pain level 0/10, and at baseline ambulates independently without assistive devices; currently SBA to BSC. Bed locked in lowest position, side rails up x2, and call light within reach. PICC in RUE x1 lumen running NS at 60 ml/hr inserted on 01/29/19. Skin: left great toe ulceration WILY: no drainage, black necrotic; top of left foot and medial portion of left foot ulceration with eschar and necrotic tissue. Dressing has drainage present. Will change dressing according to order. POC discussed and questions answered. Patient is s/p I&D of left foot abscess with Dr. De Santiago on 01/26/19, s/p EGD wit Dr. Wilson on 01/30/19, and s/p I&D of left foot again with Dr. De Santiago on 02/01/19. Will continue to round and reposition prn.
[2019-02-01 22:00] VITALS: BP 114/61
--- NOTE | 2019-02-01 22:00 | NUR ---
Patient refused his 2200 colace.
[2019-02-02 05:00] VITALS: BP 118/69
[2019-02-02] MEDS: INSULIN LANTUS (GLARGINE) 1 /0.01ml (100units/ml) SC SCH (06:37)
[2019-02-02 06:47] LABS: Basophils # (auto) 0.1 uL; Eosinophils # (auto) 0.1 uL; Lymphocytes # (auto) 1.3 uL; Neutrophils % (auto) 81.9 % (37.0-80.0)
[2019-02-02 06:48] LABS: Basophils % (auto) 0.7 % (0.0-2.0); Eosinophils % (auto) 0.6 % (0.0-7.0); Hematocrit 26.9 % (41.0-53.0); Hemoglobin 9.1 g/dL (13.5-17.5); Lymphocytes % (auto) 12.4 % (10.0-50.0); Mean Corpuscular Hemoglobin 29.3 pg (28.0-32.0); Mean Corpuscular Hgb Conc. 33.9 g/dL (32.0-36.0); Mean Corpuscular Volume 86.4 fL (80.0-100.0); Monocytes # (auto) 0.5 uL; Monocytes % (auto) 4.4 % (0.0-12.0); Neutrophils # (auto) 8.7 uL; Platelet Count (auto) 488 10^3/uL (140-450); Red Blood Cells 3.12 10^6/uL (4.5-5.90); Red Cell Distribution Width 14.1 % (11.8-14.3); White Blood Cell 10.6 10^3/uL (4.4-10.8)
[2019-02-02] MEDS: InsuLIN REG 1unit/0.01ml Soln (100units/ml) SC SCH ×4 (07:00→22:00)
[2019-02-02] MEDS: ACCU-CHEK COMFORT CURVE STRIP VI SCH ×4 (07:00→23:34)
--- NOTE | 2019-02-02 07:00 | NUR ---
Opening Shift Note Assumed care of the patient from the production shift supervisor RN. The patient is A&Ox4, no signs or symptoms of distress. Educated the patient on POC and patient verbalized understanding. Reinforced dressing on left foot. Moderate yellow and sanguinous drainage. The patient's call light is within reach and bed is in the lowest, locked position. Will round hourly and continue to monitor.
[2019-02-02 07:09] LABS: Albumin 1.3 g/dL (3.4-5.0); Calcium 7.4 mg/dL (8.5-10.1); Potassium 3.6 mmol/L (3.5-5.1)
[2019-02-02 07:11] LABS: BUN/Creatinine Ratio 15.2; Bilirubin, Total 0.3 mg/dL (0.2-1.0)
[2019-02-02 08:00] VITALS: BP 123/74
[2019-02-02] MEDS: Pro-Stat SF 30ml Vanilla PO SCH ×2 (08:02→18:06)
[2019-02-02 09:26] VITALS: BP 123/74
[2019-02-02] MEDS: DOCUSATE SOD 100 MG CAP PO SCH ×2 (10:00→22:00)
[2019-02-02] MEDS: LEVOFLOXACIN 750MG 150 ML IV SCH (10:55)
[2019-02-02] MEDS: SODIUM CHLOR 0.9% PF (SALINE LOCK) 10ML VIAL/SYR IV SCH ×2 (10:56→23:33)
[2019-02-02] MEDS: PANTOPRAZOLE 40 MG TAB PO SCH ×2 (10:56→23:30)
[2019-02-02] MEDS: MULTIPLE VITAMINS W/ MINERALS TAB PO SCH (10:56)
[2019-02-02] MEDS: ASCORBIC ACID 500 MG TAB PO SCH ×2 (10:57→23:30)
[2019-02-02] MEDS: ENOXAPARIN SOD 40 MG/0.4 ML SYRINGE SC SCH (10:57)
[2019-02-02] MEDS: SODIUM CHLORIDE 0.9% 1,000 ML IV SCH (12:41)
[2019-02-02 13:00] VITALS: BP 122/67
[2019-02-02 17:00] VITALS: BP 121/72
--- NOTE | 2019-02-02 19:40 | NUR ---
Opening Shift Note Assumed care of patient, awake and alert oriented x4. No S/S of distress/SOB or pain. Bed in lowest locked position with bed rails up x2 and call light is within reach of the patient. Instructed on POC and to call for assist PRN.
[2019-02-02 22:00] VITALS: BP 126/74
[2019-02-02] MEDS: TEMAZEPAM 15 MG CAP PO PRN (23:31)
--- NOTE | 2019-02-03 | NUR ---
Dressing reinforced: Left foot dressing reinforced. moderate yellow drainage seen. Time and dated on reinforced dressing. Patient tolerated well with no S/S of distress noted.
[2019-02-03 05:00] VITALS: BP 134/78
[2019-02-03] MEDS: SODIUM CHLORIDE 0.9% 1,000 ML IV SCH (05:10)
[2019-02-03] MEDS: INSULIN LANTUS (GLARGINE) 1 /0.01ml (100units/ml) SC SCH (06:30)
[2019-02-03] MEDS: ACCU-CHEK COMFORT CURVE STRIP VI SCH ×4 (06:31→22:48)
[2019-02-03] MEDS: InsuLIN REG 1unit/0.01ml Soln (100units/ml) SC SCH ×4 (06:31→22:00)
[2019-02-03] MEDS: Pro-Stat SF 30ml Vanilla PO SCH ×2 (08:00→18:00)
[2019-02-03 08:08] VITALS: BP 128/72
[2019-02-03] MEDS ORDERED: HYDROcodone-ACET 5/325MG TAB PO PRN (11:15)
[2019-02-03] MEDS: LEVOFLOXACIN 750MG 150 ML IV SCH (11:28)
[2019-02-03] MEDS: SODIUM CHLOR 0.9% PF (SALINE LOCK) 10ML VIAL/SYR IV SCH ×2 (11:28→22:50)
[2019-02-03] MEDS: PANTOPRAZOLE 40 MG TAB PO SCH ×2 (11:29→22:45)
[2019-02-03] MEDS: DOCUSATE SOD 100 MG CAP PO SCH ×2 (11:29→22:00)
[2019-02-03] MEDS: MULTIPLE VITAMINS W/ MINERALS TAB PO SCH (11:29)
[2019-02-03] MEDS: ASCORBIC ACID 500 MG TAB PO SCH ×2 (11:29→22:47)
[2019-02-03 12:15] VITALS: BP 122/67
--- NOTE | 2019-02-03 12:24 | NUR ---
Case Preparer And Liner MD De Santiago informed by primary rn regarding dressing status. Dressing reinforced per nightshift but dressing already noted saturated. New orders received from MD De Santiago to consult Martha in wound care to change dressing per MD order. yarn comber notified and will see patient. Will cont to monitor
--- NOTE | 2019-02-03 13:05 | NUR ---
WOUND CARE NOTE: Wound care in to see patient per Dr. De Santiago's wound care request to check and change wound dressing to patient's Left Foot wound. Patient is 53 years old male with admitting diagnosis of DKA, L Foot Cellulitis, Early Sepsis. Patient is resting in bed in Rm. 208A. He's awake, alert and oriented. He's self turn and reposition. His current Augustin score is 19. Patient denies any pain at this time, offered pain medication prior dressing change but patient refused. Patient undergone I&D of Abscess to L Foot on 01/26/19 and 02/01/19. Patient's R foot wound measuring 14x 8x2.5cm. Wound is red with granulation tissue,yellow slough and visible tendon. Angi wound is bright red and edematous. Patient and family at bedside reported that edema has gone done compared to previous days. Moderate serous drainage noted in old dressing, no odor noted. Cleansed patient's L foot wound with wound cleanser , patted dry with sterile gauze, covered exposed tendon with petrolatum gauze to protect, packed wound cavity with one inch iodoform packing strips, covered wound with abd pad, wrapped with Kerlix and secured with tape. Wrapped L foot with Jad wrap. Patient tolerated well. Photograph of wound are taken for reference.Patient and family education given regarding wound care,verbalized understanding. RECOMMENDATION: EOD/PRN dressing change to L foot wound per MD order, Dietary consults , elevate affected extremity on pillows, continue monitoring by wound care while patient is hospitalized. Addendum: 02/03/19 at 1738 by Martha Beach RN Amended: Links added.
[2019-02-03 16:48] VITALS: BP 128/72
--- NOTE | 2019-02-03 19:00 | NUR ---
PATIENT CARE ENDORSED
--- NOTE | 2019-02-03 19:40 | NUR ---
Opening Shift Note Assumed care of patient, awake and alert oriented x4 with breaths even and unlabored. No S/S of distress/SOB or pain noted. Bed is in lowest locked position with bed rails up x2 and call light is within reach of the patient. Instructed on POC and to call for assist PRN.
[2019-02-03 22:00] VITALS: BP 129/77
[2019-02-03] MEDS: ACETAMINOPHEN 325 MG TAB PO PRN (22:46)
[2019-02-03] MEDS: TEMAZEPAM 15 MG CAP PO PRN (22:46)
[2019-02-04 05:50] VITALS: BP 137/77
[2019-02-04] MEDS: ACCU-CHEK COMFORT CURVE STRIP VI SCH ×4 (06:16→22:11)
[2019-02-04] MEDS: InsuLIN REG 1unit/0.01ml Soln (100units/ml) SC SCH ×4 (06:17→22:11)
[2019-02-04] MEDS: INSULIN LANTUS (GLARGINE) 1 /0.01ml (100units/ml) SC SCH (06:17)
--- NOTE | 2019-02-04 07:21 | NUR ---
Closing note: Patient resting in bed, breaths even and unlabored. No S/S of distress SOB noted. Bed is in lowest locked position with bed rails up x2 call light is in reach of the patient. Care endorsed to day shift nurse.
[2019-02-04] MEDS: Pro-Stat SF 30ml Vanilla PO SCH ×2 (08:05→18:00)
[2019-02-04 09:00] VITALS: BP 134/76
[2019-02-04] MEDS: DOCUSATE SOD 100 MG CAP PO SCH ×2 (10:00→22:01)
--- NOTE | 2019-02-04 10:26 | NUR ---
SPOKE TO MD MD NAIK AT BEDSIDE, AWARE OF PATIENTS STATUS. AWAITING NEW ORDERS. PIG LEAD MELTER HELPER PAGED TO SEE PATIENT. MD MCKEON STATES HE WILL SEE PATIENT TOMORROW. CONT CARE
[2019-02-04 11:13] LABS: Basophils # (auto) 0.1 uL; Basophils % (auto) 1.1 % (0.0-2.0); Eosinophils # (auto) 0.1 uL; Hematocrit 30.2 % (41.0-53.0); Hemoglobin 9.9 g/dL (13.5-17.5); Lymphocytes # (auto) 0.7 uL; Lymphocytes % (auto) 11.2 % (10.0-50.0); Mean Corpuscular Hemoglobin 28.6 pg (28.0-32.0); Mean Corpuscular Hgb Conc. 32.7 g/dL (32.0-36.0); Mean Corpuscular Volume 87.4 fL (80.0-100.0); Monocytes # (auto) 0.3 uL; Monocytes % (auto) 5.2 % (0.0-12.0); Neutrophils # (auto) 5.3 uL; Neutrophils % (auto) 81.5 % (37.0-80.0); Nucleated Red Blood Cells % 0.1 %; Platelet Count (auto) 479 10^3/uL (140-450); Red Blood Cells 3.45 10^6/uL (4.5-5.90); Red Cell Distribution Width 14.2 % (11.8-14.3); White Blood Cell 6.6 10^3/uL (4.4-10.8)
[2019-02-04] MEDS: LEVOFLOXACIN 750MG 150 ML IV SCH (11:25)
[2019-02-04] MEDS: ENOXAPARIN SOD 40 MG/0.4 ML SYRINGE SC SCH (11:25)
[2019-02-04] MEDS: PANTOPRAZOLE 40 MG TAB PO SCH ×2 (11:26→22:00)
[2019-02-04] MEDS: SODIUM CHLOR 0.9% PF (SALINE LOCK) 10ML VIAL/SYR IV SCH ×2 (11:26→21:55)
[2019-02-04] MEDS: MULTIPLE VITAMINS W/ MINERALS TAB PO SCH (11:26)
[2019-02-04] MEDS: ASCORBIC ACID 500 MG TAB PO SCH ×2 (11:26→22:00)
[2019-02-04 11:27] LABS: Potassium 3.8 mmol/L (3.5-5.1)
--- NOTE | 2019-02-04 11:28 | NUR ---
I faxed home health wound care order to [facility].
[2019-02-04 11:35] LABS: Albumin 1.4 g/dL (3.4-5.0); BUN/Creatinine Ratio 21.4; Bilirubin, Total 0.3 mg/dL (0.2-1.0); Calcium 7.9 mg/dL (8.5-10.1); Magnesium 2.2 mg/dL (1.6-2.6)
--- NOTE | 2019-02-04 11:53 | NUR ---
I faxed walker order to [facility].
--- NOTE | 2019-02-04 12:15 | NUR ---
Nutrition Consult/Follow-up Notes Wt.: 82.0 kg Pt was awake and oriented with no family by bedside. per pt no N/V with good appetite. per pt not edu before on diet (noted pt was recently edu per notes). Re educated pt on diabetic diet, counting carbs and wound healing. pt verbalized understanding. pt is currently on CCHO 60 gm/meal diet with adequate PO of > 75% x 6 per RN doc. noted pt on prostat 1 packet bid Est. Needs: 1650 kcal to 2050 kcal (25-30 kcal/kgBW), 82 gms to 114 gms pro (1.0-1.4 gms/kgBW d/t severe hypoalbuminemia, wound healing). Will continue to monitor pertinent labs and reassess nutrient need prn Labs: CA 7.4 L, ALB 1.3 L. Skin: Augustin scale 19, low risk, pt's left ft DFU per dumper [employer] mixing [employer]. Pls refer to wound care notes for further details re: tx plans. noted pt on MVI./C GI: Pt had 1 BM yesterday per dumper [employer]. PES: Increased nutrient needs r/t impaired skin integrity aeb Cellulitis of left foot,Dehydration,Sepsis severe hypoalbuminemia,wound healing. Altered nutrition related lab values r/t current/chronic medical condition aeb hypokalemia, hyponatremia, elev. HbA1c, Trig, hypocalcemia and severe hypoalbuminemia Will continue to monitor PO intake, skin status, pertinent labs and weight trend. F/u in 3 to 5 days. Rec.: 1.) If lipid profile remains elev. , consider Low Fat, Low Chol in addition to current therapeutic diet. 2.) Continue close supervision with meals. 3.) Refer to CDE/RD for further nutrition education and weight monitoring upon discharged. 4.) Continue current plan of care
[2019-02-04] MEDS: SODIUM FERR GLUC 62.5MG/5ML 125 MG in SODIUM CHL 0.9% 100 ML IV SCH (12:19)
--- NOTE | 2019-02-04 12:44 | NUR ---
Pos blood culture Per Micro blood culture positive for gram positive cocci in clusters. MD Elena aware and Elvin ordered. Cont care
[2019-02-04 13:00] VITALS: BP 115/75
[2019-02-04] MEDS ORDERED: VANCOMYCIN PER PHARMACY 0 MG IV SCH (13:00)
[2019-02-04] MEDS: VANCOMYCIN 1GM/250ML 250 ML IV SCH ×2 (14:22→21:55)
--- NOTE | 2019-02-04 15:42 | NUR ---
I spoke with Flaca at [facility] [phone] to let her know that patient was not discharging home today and that I would follow up with her tomorrow regarding the home IV ATB order.
--- NOTE | 2019-02-04 16:34 | NUR ---
I spoke with Kimmie at , provided her with auth number, she said walker will be delivered to bedside.
[2019-02-04 17:00] VITALS: BP 120/71
[2019-02-04 22:00] VITALS: BP 126/75
[2019-02-04] MEDS: ATORVASTATIN 20 MG TAB PO SCH (22:00)
[2019-02-04] MEDS: TEMAZEPAM 15 MG CAP PO PRN (23:34)
[2019-02-05 05:01] VITALS: BP 127/68
[2019-02-05 05:58] LABS: Potassium 3.7 mmol/L (3.5-5.1)
[2019-02-05 06:05] LABS: Albumin 1.3 g/dL (3.4-5.0); BUN/Creatinine Ratio 17.2; Bilirubin, Total 0.3 mg/dL (0.2-1.0); Calcium 7.7 mg/dL (8.5-10.1); Total Protein 5.8 g/dL (6.4-8.2)
[2019-02-05] MEDS: InsuLIN REG 1unit/0.01ml Soln (100units/ml) SC SCH ×4 (06:20→22:00)
[2019-02-05] MEDS: ACCU-CHEK COMFORT CURVE STRIP VI SCH ×4 (06:20→22:52)
[2019-02-05] MEDS: VANCOMYCIN 1GM/250ML 250 ML IV SCH ×3 (06:20→22:40)
[2019-02-05] MEDS: INSULIN LANTUS (GLARGINE) 1 /0.01ml (100units/ml) SC SCH (07:28)
[2019-02-05 08:00] VITALS: BP 115/68
[2019-02-05] MEDS: Pro-Stat SF 30ml Vanilla PO SCH ×2 (08:00→17:48)
--- NOTE | 2019-02-05 08:00 | NUR ---
[employer] at bedside MD De Santiago at bedside to assess foot. Dressing completely removed and assessed by MD. Wound cleaned and dressed as ordered pt tolerated it well with no c/o pain. No further orders at this time. Will cont care.
[2019-02-05] MEDS: DOCUSATE SOD 100 MG CAP PO SCH ×2 (10:00→22:00)
[2019-02-05] MEDS: MULTIPLE VITAMINS W/ MINERALS TAB PO SCH (10:14)
[2019-02-05] MEDS: ENOXAPARIN SOD 40 MG/0.4 ML SYRINGE SC SCH (10:14)
[2019-02-05] MEDS: ASPirin 81 mg TAB PO SCH (10:15)
[2019-02-05] MEDS: ASCORBIC ACID 500 MG TAB PO SCH ×2 (10:15→22:52)
[2019-02-05] MEDS: PANTOPRAZOLE 40 MG TAB PO SCH ×2 (10:15→22:52)
[2019-02-05] MEDS: LISINOPRIL 5 MG TAB PO SCH (10:16)
[2019-02-05] MEDS: SODIUM CHLOR 0.9% PF (SALINE LOCK) 10ML VIAL/SYR IV SCH ×2 (10:17→22:40)
--- NOTE | 2019-02-05 10:58 | NUR ---
I spoke with Dr. Elena regarding the plan of care for this patient and possible discharge date, he will place new order for home IV ATB.
--- NOTE | 2019-02-05 11:10 | NUR ---
Spoke to Hospitalist MD Elena aware of patients status, micro results, abnormal labs, and director of strategic communications f/u this morning at bedside. Awaiting new orders
[2019-02-05] MEDS: SODIUM FERR GLUC 62.5MG/5ML 125 MG in SODIUM CHL 0.9% 100 ML IV SCH (12:30)
[2019-02-05 13:18] VITALS: BP 106/61
--- NOTE | 2019-02-05 15:03 | NUR ---
Cardio at bedside MD Arechiga at bedside, aware of patients status. Manual BP assessed by MD to left ankle. Doppler used to auscultate pulse to left extremity. New orders for BIBI tomorrow. Per MD Arechiga he spoke to MD Tena and he will be the one to perform BIBI tomorrow at 0800. Patient aware and verbalized understanding. Will cont care
[2019-02-05 16:50] VITALS: BP 112/65
--- NOTE | 2019-02-05 19:00 | NUR ---
OPEN SHIFT NOTE PATIENT IS ALERT AND ORIENTED X 4. ON ROOM AIR, PICC LINE IN THE RIGHT UPPER ARM IS INTACT AND PATENT. DRESSING ON THE LEFT FOOT IS DRY AND INTACT. NO COMPLAINTS OF PAIN AT THIS TIME. POC DISCUSSED AND QUESTIONS ANSWERED. BED IS LOCKED IN LOWEST POSITION, SIDE RAILS UP X2 FOR SAFETY. CALL LIGHT IS WITHIN REACH. WILL CONTINUE TO ROUND Q1HR AND PRN.
--- NOTE | 2019-02-05 19:00 | NUR ---
Patient care endorsed endorsed care to Solange chaudhry. Patient sitting up in bed in no acute distress or sob noted
[2019-02-05 22:00] VITALS: BP 120/71
[2019-02-05] MEDS: ATORVASTATIN 20 MG TAB PO SCH (22:52)
[2019-02-06] VITALS (7 sets, daily range): BP systolic 88–118; BP diastolic 49–75
[2019-02-06 05:51] LABS: Basophils # (auto) 0 uL; Basophils % (auto) 0.9 % (0.0-2.0); Eosinophils # (auto) 0.1 uL; Eosinophils % (auto) 1.9 % (0.0-7.0); Hematocrit 28.5 % (41.0-53.0); Hemoglobin 9.4 g/dL (13.5-17.5); Lymphocytes # (auto) 1.2 uL; Lymphocytes % (auto) 25.2 % (10.0-50.0); Mean Corpuscular Hemoglobin 28.7 pg (28.0-32.0); Mean Corpuscular Hgb Conc. 33.1 g/dL (32.0-36.0); Mean Corpuscular Volume 86.7 fL (80.0-100.0); Monocytes # (auto) 0.4 uL; Monocytes % (auto) 7.3 % (0.0-12.0); Neutrophils # (auto) 3.2 uL; Neutrophils % (auto) 64.7 % (37.0-80.0); Nucleated Red Blood Cells % 0.1 %; Platelet Count (auto) 417 10^3/uL (140-450); Red Blood Cells 3.29 10^6/uL (4.5-5.90); Red Cell Distribution Width 14.5 % (11.8-14.3); White Blood Cell 4.9 10^3/uL (4.4-10.8)
[2019-02-06] MEDS: VANCOMYCIN 1GM/250ML 250 ML IV SCH ×3 (06:17→22:17)
[2019-02-06 06:21] LABS: Albumin 1.5 g/dL (3.4-5.0); Calcium 7.8 mg/dL (8.5-10.1); Potassium 3.7 mmol/L (3.5-5.1)
[2019-02-06 06:32] LABS: BUN/Creatinine Ratio 18.1; Bilirubin, Total 0.4 mg/dL (0.2-1.0); CRP High Sensitivity 5.32 mg/dL (< 0.3); Total Protein 6.1 g/dL (6.4-8.2)
[2019-02-06] MEDS: InsuLIN REG 1unit/0.01ml Soln (100units/ml) SC SCH ×4 (07:00→22:00)
[2019-02-06] MEDS: INSULIN LANTUS (GLARGINE) 1 /0.01ml (100units/ml) SC SCH (07:00)
[2019-02-06] MEDS: ACCU-CHEK COMFORT CURVE STRIP VI SCH ×4 (07:19→22:00)
[2019-02-06] MEDS: Pro-Stat SF 30ml Vanilla PO SCH ×2 (07:23→17:54)
--- NOTE | 2019-02-06 07:35 | NUR ---
Opening Shift Note Received report from Solange GREENBERG. Assumed care of patient, awake and alert. No S/S of distress/SOB or pain. NOted dry & intact dresssing on left foot. Emphasized NPO for BIBI. Instructed on POC and to call for assist PRN, will continue to monitor for changes Q1hr and PRN.
[2019-02-06] MEDS ORDERED: fentaNYL CITRATE 100 MCG/2 ML VL IV ONE (07:45)
[2019-02-06] MEDS ORDERED: MIDAZOLAM HCL 5 MG/ML-1ML VIAL IV ONE (07:45)
[2019-02-06] MEDS ORDERED: LIDOCAINE VISCOUS 2% 15ML UD MT PRN (07:45)
--- NOTE | 2019-02-06 08:20 | NUR ---
ASSISTED PATIENT TO [facility] BY BED FOR BIBI.
[2019-02-06] MEDS ORDERED: MIDAZOLAM HCL 1MG/1ML-2 ML VIAL IV ONE (08:45)
[2019-02-06] MEDS ORDERED: FLUMAZENIL 0.1 MG/ML INJ 10ML MDV IV ONE (08:45)
[2019-02-06] MEDS ORDERED: NALOXONE HCL 0.4 MG/ML VIAL ONE (08:53)
[2019-02-06] MEDS: DOCUSATE SOD 100 MG CAP PO SCH ×3 (10:00→22:17)
--- NOTE | 2019-02-06 10:15 | NUR ---
PATIENT IS BACK TO ROOM BY BED. ASSISTED BY 2 [facility] NURSES.
--- NOTE | 2019-02-06 10:15 | NUR ---
Dr. Elena at bedside.
[2019-02-06] MEDS: LISINOPRIL 5 MG TAB PO SCH (10:31)
[2019-02-06] MEDS: ASPirin 81 mg TAB PO SCH (10:32)
[2019-02-06] MEDS: PANTOPRAZOLE 40 MG TAB PO SCH ×2 (10:32→22:17)
[2019-02-06] MEDS: ENOXAPARIN SOD 40 MG/0.4 ML SYRINGE SC SCH (10:32)
[2019-02-06] MEDS: MULTIPLE VITAMINS W/ MINERALS TAB PO SCH (10:32)
[2019-02-06] MEDS: SODIUM CHLOR 0.9% PF (SALINE LOCK) 10ML VIAL/SYR IV SCH ×2 (10:33→22:17)
[2019-02-06] MEDS: ASCORBIC ACID 500 MG TAB PO SCH ×2 (10:33→22:17)
--- NOTE | 2019-02-06 12:00 | NUR ---
CALLED [facility] TO FF UP HOME IV ABX IF ALL SET UP, CALL WENT STRAIGHT TO [employer], LEFT A MESSAGE.
[2019-02-06] MEDS: SODIUM FERR GLUC 62.5MG/5ML 125 MG in SODIUM CHL 0.9% 100 ML IV SCH (12:14)
--- NOTE | 2019-02-06 13:03 | NUR ---
I faxed new home IV ATB order change to [facility].
--- NOTE | 2019-02-06 14:30 | NUR ---
Wound Care Wound care provided per MD order. Cleaned left foot with sterile NS then patted dry with sterile gauze. Took picture as reference for discharge, filled out wound care form. Packed with iodoform then covered with adaptive dressing then covered ABD pad. Secured with kerlix then wrapped with VALARIE bandage. Patient tolerated well and verbalized dressing care instructions.
--- NOTE | 2019-02-06 14:45 | NUR ---
I spoke with Flaca at [facility] [phone], she said they did receive the new IV ATB order, but she needs the dose specified and she needs the order to say CBC, BMP and Vanco trough weekly-I relayed this information to nurse Fox.
--- NOTE | 2019-02-06 15:00 | NUR ---
POST OP SHOE LEFT FOOT GIVEN TO PATIENT.
--- NOTE | 2019-02-06 15:23 | NUR ---
ACCUCHECK MACHINE FOR PATIENT DELIVERED AT BEDSIDE. INSTRUCTED HOW TO USE, PATIENT DID RETURN DEMONSTRATION.
--- NOTE | 2019-02-06 15:51 | NUR ---
Faxed updated IV ATB order to [facility].
--- NOTE | 2019-02-06 16:02 | NUR ---
I called [facility] [phone] and left message asking if they are accepting this patient, awaiting return call.
--- NOTE | 2019-02-06 16:25 | NUR ---
I called Flaca at [facility] to verify that she has all the information she needs, left message, awaiting return call.
--- NOTE | 2019-02-06 16:48 | NUR ---
I spoke with Betty at [facility] asking if they can accept this patient, she is going to have her director give me a call.
--- NOTE | 2019-02-06 17:01 | NUR ---
I faxed [facility] for wound care-I called [facility] and spoke with Tiki, she said they do take [employer] patients but that they do not have any nurses at this time.
--- NOTE | 2019-02-06 17:24 | NUR ---
CHANGED DISCHARGE DATE PROTOCOL TO TOMORROW, HOME WOUND CARE NURSE STILL PENDING. PATIENT MADE AWARE AND VERBALIZED UNDERSTANDING.
--- NOTE | 2019-02-06 19:30 | NUR ---
Opening Shift Note Assumed care of patient, awake and alert. No S/S of distress/SOB or pain. Insructed on POC and to callfor assist PRN, will continue to monitor for changes Q1hr and PRN. Fall and safety precautions in place. Call light within reach. Will continue to monitor
[2019-02-06] MEDS: ATORVASTATIN 20 MG TAB PO SCH (22:16)
[2019-02-06] MEDS: TEMAZEPAM 15 MG CAP PO PRN (22:17)
[2019-02-07 05:51] VITALS: BP 111/69
[2019-02-07] MEDS: VANCOMYCIN 1GM/250ML 250 ML IV SCH ×3 (05:51→21:31)
[2019-02-07] MEDS: ACCU-CHEK COMFORT CURVE STRIP VI SCH ×4 (05:54→21:32)
[2019-02-07 06:16] LABS: % Iron Saturation 21.2 % (20-55)
[2019-02-07] MEDS: INSULIN LANTUS (GLARGINE) 1 /0.01ml (100units/ml) SC SCH (06:20)
[2019-02-07] MEDS: InsuLIN REG 1unit/0.01ml Soln (100units/ml) SC SCH ×4 (06:20→21:54)
--- NOTE | 2019-02-07 07:30 | NUR ---
OPENING NOTE ASSUMED CARE OF PATIENT. PATIENT IS LAYING ON BED, HOB LOW-FOWLERS. PATIENT IS A&O X4. ON ROOM AIR, O2 SATURATION 94%. NO SIGNS OF SOB/DISTRESS NOTED. SAFETY PRECAUTIONS IN PLACE INCLUDING BED SET TO LOWEST POSITION/LOCKED. BEDSIDE RAIL X2. CALL LIGHT WITHIN REACH. INSTRUCTED PATIENT TO CALL ASSISTANCE. DISCUSSED POC OF CARE. WILL CONTINUE TO MONITOR Q 1HR AND PRN.
[2019-02-07 07:46] VITALS: BP 113/68
--- NOTE | 2019-02-07 09:38 | NUR ---
I called [facility] and spoke with Zuleyka, she said they can accept this patient for wound care but can not send a nurse until Monday. I [facility]ed [facility] care order to [facility]. I paged wound care nurse to try and make arrangements for patient to come to urgent care Monday for a dressing change since home health will not see him until Monday.
[2019-02-07] MEDS: DOCUSATE SOD 100 MG CAP PO SCH ×3 (10:00→21:53)
[2019-02-07] MEDS: MULTIPLE VITAMINS W/ MINERALS TAB PO SCH (10:31)
[2019-02-07] MEDS: PANTOPRAZOLE 40 MG TAB PO SCH ×2 (10:31→21:31)
[2019-02-07] MEDS: ASPirin 81 mg TAB PO SCH (10:31)
[2019-02-07] MEDS: ASCORBIC ACID 500 MG TAB PO SCH ×2 (10:31→21:31)
[2019-02-07] MEDS: LISINOPRIL 5 MG TAB PO SCH (10:32)
[2019-02-07] MEDS: ENOXAPARIN SOD 40 MG/0.4 ML SYRINGE SC SCH (10:32)
[2019-02-07] MEDS: SODIUM CHLOR 0.9% PF (SALINE LOCK) 10ML VIAL/SYR IV SCH ×2 (10:38→21:31)
[2019-02-07] MEDS: Pro-Stat SF 30ml Vanilla PO SCH ×2 (10:38→18:00)
[2019-02-07 11:59] VITALS: BP 99/52
[2019-02-07] MEDS: SODIUM FERR GLUC 62.5MG/5ML 125 MG in SODIUM CHL 0.9% 100 ML IV SCH (12:00)
[2019-02-07 16:36] VITALS: BP 116/68
--- NOTE | 2019-02-07 17:04 | NUR ---
I spoke with patient's nurse to ask Dr. Lancaster if patient can have dressing changed tomorrow and then have it changed by home health again on Monday.
--- NOTE | 2019-02-07 17:52 | NUR ---
LEFT MESSAGE FOR DR. MCKEON. THIS NURSE WAS INQUIRING IF PATIENT COULD HAVE DRESSING CHANGE TOMORROW Monday02/08/19 AND THEN HAVE DRESSING CHANGED ON Monday02/11/19 BY HOME HEALTH NURSE. AWAITING CALL BACK.
--- NOTE | 2019-02-07 19:30 | NUR ---
ENDORSED CARE TO YARI MARIE.
[2019-02-07] MEDS: ATORVASTATIN 20 MG TAB PO SCH (21:32)
[2019-02-07] MEDS: TEMAZEPAM 15 MG CAP PO PRN (21:33)
[2019-02-07 22:00] VITALS: BP 117/64
--- NOTE | 2019-02-07 22:20 | NUR ---
WOUND CARE Dressing to left foot noted to be saturated. Dressing changed at this time using abd pad, kerlix, and tracy wrap. Moist primary dressing and packing not removed. Pt tolerated well, will continue to monitor.
[2019-02-08 05:00] VITALS: BP 105/62
[2019-02-08] MEDS: INSULIN LANTUS (GLARGINE) 1 /0.01ml (100units/ml) SC SCH (06:19)
[2019-02-08] MEDS: ACCU-CHEK COMFORT CURVE STRIP VI SCH ×2 (06:19→11:46)
[2019-02-08] MEDS: InsuLIN REG 1unit/0.01ml Soln (100units/ml) SC SCH ×2 (06:19→11:30)
[2019-02-08] MEDS: VANCOMYCIN 1GM/250ML 250 ML IV SCH ×2 (06:22→14:09)
[2019-02-08] MEDS: Pro-Stat SF 30ml Vanilla PO SCH (07:46)
[2019-02-08 08:46] VITALS: BP 111/66
--- NOTE | 2019-02-08 09:12 | NUR ---
I spoke with nurse Kandis regarding the plan of care for this patient-she will let me know when she gets a hold of Dr. Lancaster to see if we can have the dressing changed today and then send the patient home and have dressing changed by home health on Monday (home health can not see patient until Monday).
[2019-02-08] MEDS: ENOXAPARIN SOD 40 MG/0.4 ML SYRINGE SC SCH (10:20)
[2019-02-08] MEDS: ASPirin 81 mg TAB PO SCH (10:20)
[2019-02-08] MEDS: MULTIPLE VITAMINS W/ MINERALS TAB PO SCH (10:21)
[2019-02-08] MEDS: ASCORBIC ACID 500 MG TAB PO SCH (10:21)
[2019-02-08] MEDS: PANTOPRAZOLE 40 MG TAB PO SCH (10:21)
[2019-02-08] MEDS: DOCUSATE SOD 100 MG CAP PO SCH (10:21)
[2019-02-08] MEDS: LISINOPRIL 5 MG TAB PO SCH (10:22)
[2019-02-08] MEDS: SODIUM CHLOR 0.9% PF (SALINE LOCK) 10ML VIAL/SYR IV SCH (10:28)
[2019-02-08] MEDS: SODIUM FERR GLUC 62.5MG/5ML 125 MG in SODIUM CHL 0.9% 100 ML IV SCH (11:46)
[2019-02-08 13:00] VITALS: BP 116/68
--- NOTE | 2019-02-08 13:10 | NUR ---
dr dee office called again regarding dressing change orders for this patient and notification of intent to discharge
--- NOTE | 2019-02-08 14:04 | NUR ---
Nutrition Consult and Follow-up Notes Wt.: 68.1 kg based on bed scale as of yesterday. Pt's watching TV, denies any discomfort when rounded this morning. Pt's been seen, assessed, provided thorough verbal and written nutritional education re: therapeutic diet r/t DM last 01/28/19 wherein pt acknowledged my previous RD's visit. Per pt, he's now more determined to follow all medical and nutrition intervention provided to him with the support of his . Pt's currently on CCHO 60 gms/meal diet with Prostat 1 pkt BID, has adequate PO aeb >75% ave. consumed meals (x7) in last 3 days. Reinforced nutrition educ., reminded to attend DM class offered every month, addressed questions/concerns appropriately and he verbalized understanding. Est. Needs: 1650 kcal to 2050 kcal (25-30 kcal/kgBW), 82 gms to 114 gms pro (1.0-1.4 gms/kgBW d/t severe hypoalbuminemia, wound healing). Will continue to monitor pertinent labs and reassess nutrient need prn Labs: POC Gluc 119 H, Fe 29 L, TIBC 137 L, Ferritin 1181 H; C react prot 5.32 H, Tpro 6.1 L, Alb 1.5 L. Skin: Augustin scale 19, low risk, pt's left ft DFU per milled rubber tender. Pls refer to wound care notes yesterday for further details re: tx plans. Noted pt's on MVI/Vit C supplements GI: Pt had 1 BM this morning per milled rubber tender. PES: Increased nutrient needs r/t impaired skin integrity aeb Cellulitis of left foot,Dehydration,Sepsis severe hypoalbuminemia,wound healing. Altered nutrition related lab values r/t current/chronic medical condition aeb hypokalemia, hyponatremia, elev. HbA1c, Trig, hypocalcemia and severe hypoalbuminemia Will continue to monitor PO intake, skin status, pertinent labs and weight trend. F/u in 3 to 5 days. Rec.: 1.) Continue close supervision with meals. 2.) Refer to CDE/RD for further nutrition education and weight monitoring upon discharged. 3.) Continue current plan of care. Thank you for this consult.
--- NOTE | 2019-02-08 15:15 | NUR ---
left message with social staff worker for clarification on when wound care nurse will arrive at home so we can give proper instructions for patient d/c.
--- NOTE | 2019-02-08 15:42 | NUR ---
dr dee states do wound care today, no wound care for monday and monday. [facility] will take over wound care on monday
--- NOTE | 2019-02-08 15:43 | NUR ---
I spoke with Flaca at [facility] [phone], she is aware that the patient is discharged today, they will contact the patient regarding delivery time, they are providing the home health for the IV ATB. I called [facility] [phone], they will see patient on Monday for wound care. I spoke with patient's nurse Kandis who spoke with Dr. Lancaster-he said to change dressing today and it will be okay to have it changed again on Monday.
--- NOTE | 2019-02-08 16:26 | NUR ---
DRESSING CHANGE DONE TO LATERAL LEFT FOOT. PROCEDURE WELL TOLERATED. WOUND DEPTH IS DOWN TO MUSCLE AND TENDON. TISSUE IS RED AND HEALTHY. THERE IS PURULENT DRAINAGE THAT SATURATED EXISTING DRAINAGE. WOUND CLEANSED WITH NORMAL SALINE, PACKING APPLIED TO WOUND BED AND MOISTENED WITH NORMAL SALINE. OCCLUSIVE DRESSING PLACED OVER PACKING. GAUZE LAID OVER OCCLUSIVE AND ABD PAD PLACED. WRAPPED WITH KERLIX AND VALARIE WRAP. TOES ARE NEUROVASCULARLY INTACT.
[2019-02-08 17:00] VITALS: BP 110/64
== END 2019-02-08 19:32 | disposition home or self-care (01) | DRG 853 ==
LOC: ER 10:51 → TELE 01-24 03:01 → CENTRAL 01-26 12:41
PROVIDERS: ADMIT Nurse Practitioner; ATTEND Internal Medicine
PROC: 0J9R0ZZ Drainage of Left Foot Subcutaneous Tissue and Fascia, Open Approach (ICD-10-PCS; 2019-01-26)
PROC: 0JDR0ZZ Extraction of Left Foot Subcutaneous Tissue and Fascia, Open Approach (ICD-10-PCS; 2019-01-26)
PROC: 02HV33Z Insertion of Infusion Device into Superior Vena Cava, Percutaneous Approach (ICD-10-PCS; 2019-01-29)
PROC: 0DJD8ZZ Inspection of Lower Intestinal Tract, Via Natural or Artificial Opening Endoscopic (ICD-10-PCS; principal; 2019-01-30 11:37)
PROC: 0LBW0ZZ Excision of Left Foot Tendon, Open Approach (ICD-10-PCS; 2019-02-01)
PROC: 0LDW0ZZ Extraction of Left Foot Tendon, Open Approach (ICD-10-PCS; 2019-02-01)
PROC: 0Y9N0ZZ Drainage of Left Foot, Open Approach (ICD-10-PCS; 2019-02-01)
DX: A41.9 Sepsis, unspecified organism (principal); N17.0 Acute kidney failure with tubular necrosis; E11.10 Type 2 diabetes mellitus with ketoacidosis without coma; E43 Unspecified severe protein-calorie malnutrition; L03.116 Cellulitis of left lower limb; E87.1 Hypo-osmolality and hyponatremia; E11.52 Type 2 diabetes mellitus with diabetic peripheral angiopathy with gangrene; L02.612 Cutaneous abscess of left foot; M86.8X7 Other osteomyelitis, ankle and foot; E86.0 Dehydration; E11.621 Type 2 diabetes mellitus with foot ulcer; E78.5 Hyperlipidemia, unspecified; L97.529 Non-pressure chronic ulcer of other part of left foot with unspecified severity; E87.6 Hypokalemia; E11.69 Type 2 diabetes mellitus with other specified complication; B95.61 Methicillin susceptible Staphylococcus aureus infection as the cause of diseases classified elsewhere; K20.9 Esophagitis, unspecified; D64.9 Anemia, unspecified; Z68.22 Body mass index [BMI] 22.0-22.9, adult; Z79.4 Long term (current) use of insulin; Z79.82 Long term (current) use of aspirin; Z79.899 Other long term (current) drug therapy; Z82.49 Family history of ischemic heart disease and other diseases of the circulatory system; Z91.19 Patient's noncompliance with other medical treatment and regimen
CPT/HCPCS: 36415; 36569; 36600; 71045; 73700; 73718; 73720; 80048; 80053; 80061; 80202; 80307; 81001; 82010; 82043; 82150; 82270; 82728; 82805; 82962; 83036; 83540; 83550; 83605; 83690; 83735; 83930; 85007; 85025; 85027; 85610; 85652; 85730; 86141; 86850; 86900; 86901; 87040; 87070; 87075; 87077; 87147; 87186; 87205; 90715; 93005; 93306; 93312; 93926; 93971; 94761; 96361; 96365; 96367; 99291; A6257; G0378; J0690; J0696; J1815; J1956; J2001; J2250; J2543; J2704; J3490; J7060

== ENCOUNTER 2019-02-15 14:22 | Inpatient (IN) | payer BC ==
[~2019-02-15] VITALS: Ht 175.3 cm; Wt 74.9 kg
[2019-02-15] MEDS ORDERED: HYDROcodone-ACET 5/325MG TAB PO PRN (16:00)
[2019-02-15] MEDS ORDERED: MORPHINE SULF INJ 2 MG/ML SYRINGE 1ML IV PRN (16:00)
[2019-02-15] MEDS: SODIUM CHLORIDE 0.9% 1,000 ML IV SCH (16:00)
[2019-02-15] MEDS ORDERED: ALUM & MAG HYDROX-SIMETH LIQ(MAALOX) 30 ML PO PRN (16:00)
[2019-02-15] MEDS ORDERED: HYDROmorphone HCL 2 MG/ML VL IV PRN (16:00)
[2019-02-15] MEDS ORDERED: ACETAMINOPHEN 325 MG TAB PO PRN (16:00)
[2019-02-15] MEDS ORDERED: ONDANSETRON HCL 4 MG/2 ML VIAL IV PRN (16:00)
[2019-02-15] MEDS ORDERED: NITROGLYCERIN 0.4 MG SL TAB SL PRN (16:00)
[2019-02-15] MEDS ORDERED: LORazepam 0.5 MG TAB PO PRN (16:00)
[2019-02-15] MEDS ORDERED: DOCUSATE SOD 100 MG CAP PO PRN (16:00)
[2019-02-15] MEDS ORDERED: MORPHINE SULFATE 4 MG/ML SYR/VIAL IV PRN (16:00)
--- NOTE | 2019-02-15 16:00 | NUR ---
DIRECT ADMIT PATIENT CAME TO MED/SURG FLOOR A DIRECT ADMIT DUE TO DIABETIC FOOT INFECTION OF LEFT FOOT. ALERT AND ORIENTED. DENIES ANY PAIN AT THIS TIME. ORIENTED TO ROOM, BED, CALL LIGHT, UNIT. PROVIDED A WALKER FROM PT FOR PATIENT TO USE DUE TO HAVING TROUBLE WALKING ON INFECTED FOOT AT THIS TIME. REMOVED DRESSING FROM LEFT FOOT IT WAS YELLOW COLORED WITH LARGE AMOUNT OF DRAINAGE. CLEANED WITH NS AND APPLIED ABD PADS, WRAPPED WITH KERLIX AND COBAN. LARGE WOUND TO INSIDE OF LEFT FOOT, PINK WOUND BED. SMALL WOUND TO OUTSIDE OF LEFT FOOT, GRAYISH AND WHITE COLORED. LEFT LEG PROPPED UP ON PILLOWS WITH ABSORBENT PAD OVER PILLOW. URINAL PROVIDED. DENIES NEEDING ANYTHING AT THIS TIME.
[2019-02-15] MEDS ORDERED: VANCOMYCIN PER PHARMACY 0 MG IV SCH (16:30)
[2019-02-15] MEDS ORDERED: DEXTROSE (50%) 50ML SYRG IV PRN (16:30)
[2019-02-15] MEDS: ACCU-CHEK COMFORT CURVE STRIP VI SCH ×2 (17:00→21:14)
[2019-02-15] MEDS: InsuLIN REG 1unit/0.01ml Soln (100units/ml) SC SCH ×2 (17:00→21:14)
[2019-02-15] MEDS ORDERED: METF-370 PO (17:15)
[2019-02-15] MEDS ORDERED: LISI-275 PO (17:15)
[2019-02-15] MEDS ORDERED: PANT40TA2 PO (17:15)
[2019-02-15] MEDS ORDERED: MULTCAP45 PO (17:15)
[2019-02-15] MEDS ORDERED: INSLANTI SC (17:15)
[2019-02-15] MEDS ORDERED: ASPI81TA27 PO (17:15)
[2019-02-15] MEDS ORDERED: ATOR20TA50 PO (17:15)
[2019-02-15] MEDS ORDERED: FERR-20 PO (17:15)
[2019-02-15] MEDS ORDERED: POM PO (17:16)
[2019-02-15 17:20] VITALS: BP 129/72
[2019-02-15 17:36] LABS: Basophils # (auto) 0 uL; Calcium 7.9 mg/dL (8.5-10.1); Eosinophils # (auto) 0.1 uL; Hemoglobin 9.5 g/dL (13.5-17.5); Lymphocytes # (auto) 1.6 uL; Neutrophils % (auto) 69.6 % (37.0-80.0); Potassium 3.4 mmol/L (3.5-5.1)
[2019-02-15 17:37] LABS: Basophils % (auto) 0.4 % (0.0-2.0); Eosinophils % (auto) 1.6 % (0.0-7.0); Hematocrit 29.1 % (41.0-53.0); Lymphocytes % (auto) 21.4 % (10.0-50.0); Mean Corpuscular Hemoglobin 28.3 pg (28.0-32.0); Mean Corpuscular Hgb Conc. 32.5 g/dL (32.0-36.0); Mean Corpuscular Volume 87.1 fL (80.0-100.0); Monocytes # (auto) 0.5 uL; Platelet Count (auto) 549 10^3/uL (140-450); Red Blood Cells 3.34 10^6/uL (4.5-5.90); Red Cell Distribution Width 16.1 % (11.8-14.3); White Blood Cell 7.3 10^3/uL (4.4-10.8)
[2019-02-15 17:45] LABS: BUN/Creatinine Ratio 12.5; Bilirubin, Total 0.3 mg/dL (0.2-1.0); CRP High Sensitivity 3.73 mg/dL (< 0.3); Total Protein 6.5 g/dL (6.4-8.2)
[2019-02-15] MEDS ORDERED: POTASSIUM CHL 20 Meq TABLET PO ONE (18:15)
[2019-02-15 18:20] LABS: INR 0.97 (0.9-1.15); Partial Thromboplastin Time 28.4 sec (23.78-33.04); Prothrombin Time 10.4 sec (9.27-12.13)
--- NOTE | 2019-02-15 19:45 | NUR ---
Opening Shift Note Assumed care of patient, awake and alert. No S/S of distress/SOB or pain. Bed in lowest locked position, side rails up x2, call light within reach. Dressing noted to left foot, minimal serous yellow drainage noted. Patient denies pain. Patient able to ambulate with steady gait with walker. PICC line in place, noted to be patent and intact with good blood return. Dressing noted to have been changed on 02/14/19 and to be clean, dry, and intact. Patient cannot recall date of insertion at this time. Instructed on POC and to call for assist PRN, will continue to monitor for changes Q1hr and PRN.
[2019-02-15] MEDS: VANCOMYCIN 1GM/250ML 250 ML IV SCH (21:07)
[2019-02-15 21:30] VITALS: BP 125/71
[2019-02-15] MEDS ORDERED: MEROPENEM 500MG IVPB 50 ML IV SCH (22:00)
[2019-02-15] MEDS: TEMAZEPAM 15 MG CAP PO PRN (23:54)
[2019-02-16 04:30] VITALS: BP 124/75
[2019-02-16] MEDS: InsuLIN REG 1unit/0.01ml Soln (100units/ml) SC SCH ×4 (06:34→23:00)
[2019-02-16] MEDS: ACCU-CHEK COMFORT CURVE STRIP VI SCH ×4 (06:34→22:00)
--- NOTE | 2019-02-16 07:04 | NUR ---
Closing Note Patient lying in bed, eyes closed, respirations even and unlabored, appears asleep. No s/s of distress. Care endorsed to dayshift RN.
--- NOTE | 2019-02-16 07:20 | NUR ---
Open Shift Note Received report on patient, awake and sitting up in bed. Patient shows no signs of distress at this time. Bed in lowest locked position, side rails up x2, and call light within reach. Will continue to monitor.
[2019-02-16 08:00] VITALS: BP 124/79
--- NOTE | 2019-02-16 08:30 | NUR ---
Spoke with Anyi Spoke with Dr De Santiago who stated he would like to do I&D of left foot today at 1000. pasteurizing supervisor notified.
[2019-02-16] MEDS ORDERED: ceFAZolin 1GM VL ONE ×2 (09:58→10:13)
[2019-02-16] MEDS ORDERED: BUPIVACAINE 0.75% INJ 10ML MPV SDV IJ ONE (09:58)
[2019-02-16] MEDS ORDERED: SUCCINYLCHOLINE CHLORIDE 20 MG/ML 10ML VIAL IV ONE (10:01)
[2019-02-16] MEDS ORDERED: ROCURONIUM 10MG/ML 10ML VIAL IV ONE (10:02)
--- NOTE | 2019-02-16 10:02 | NUR ---
WOUND CARE NOTE: Wound care in to see patient per wound care request regarding L foot wounds that are present on admission. Bedside nurse took photograph of patient's wounds upon admission for reference. Patient is 53 years old male with admitting diagnosis of Infected foot wound. Patient is resting in bed in Rm. 215B. He's awake, alert and oriented. He's self turn and reposition. His current Augustin score is 20. Patient is in no stated pain at this time. Patient undergone I&D of Abscess to L Foot on previous admission. Patient came back with Infected L foot wound. Noted Patient's L dorsal foot has open full thickness ulceration measuring 13x 9x1.5cm. Wound bed is red with granulation tissue,visible tendon and yellow slough/adipose tissue at wound edges. Angi wound is pink with bright red area and edematous. Moderate serous drainage noted, no odor noted. Another wound noted to his L medial ankle measuring 4x4cm. Wound bed is covered with black eschar with yellow slough, angi wound is bright red and edematous, minimal serous drainage noted, no odor noted. Cleansed patient's L foot wounds with NS , patted dry with sterile gauze, covered exposed tendon with petrolatum gauze to protect, covered with wound with abd pad, wrapped with Kerlix and secured with tape. Patient tolerated well. Patient to have an I&D of L Foot wounds today with Dr. De Santiago; will defer all wound care recommendation to Dr. De Santiago. RECOMMENDATION: Follow Anyi Altman post I&D dressing change order, Dietary consults , elevate affected extremity on pillows. Addendum: 02/16/19 at 1348 by Martha Beach RN Amended: Links added.
[2019-02-16] MEDS ORDERED: fentaNYL CITRATE 100 MCG/2 ML VL ONE ×2 (10:03→10:35)
[2019-02-16] MEDS ORDERED: MIDAZOLAM HCL 1MG/1ML-2 ML VIAL ONE (10:03)
[2019-02-16] MEDS ORDERED: PROPOFOL 10 MG/ML 20 ML IV ONE (10:05)
--- NOTE | 2019-02-16 10:15 | NUR ---
Patient Down To PreOp Patient taken down to pre-op. No distress noted.
[2019-02-16] MEDS ORDERED: ceFAZolin 1GM/50ML 50 ML IV ONE (10:18)
[2019-02-16] MEDS ORDERED: ONDANSETRON HCL 4 MG/2 ML VIAL IV ONE (11:15)
[2019-02-16] MEDS ORDERED: HYDROmorphone HCL 2 MG/ML VL IV PRN (11:15)
[2019-02-16] MEDS: VANCOMYCIN 1GM/250ML 250 ML IV SCH ×2 (11:50→20:51)
[2019-02-16] MEDS ORDERED: NIAC500T9 PO (12:35)
[2019-02-16] MEDS ORDERED: OMEG300C7 PO (12:35)
[2019-02-16 12:54] VITALS: BP 122/88
[2019-02-16] MEDS: MEROPENEM 1GM IVPB 100 ML IV SCH ×2 (14:00→22:58)
[2019-02-16 16:31] VITALS: BP 114/61
[2019-02-16] MEDS: SODIUM CHLORIDE 0.9% 1,000 ML IV SCH (17:47)
--- NOTE | 2019-02-16 19:03 | NUR ---
End of Shift Endorsed care to NOC nurse. Patient shows no signs of distress at this time. Bed in lowest locked position, side rails up x2, and call light within reach.
--- NOTE | 2019-02-16 19:15 | NUR ---
Opening Shift Note Assumed care of patient, awake and alert. No S/S of distress/SOB or pain. Bed in lowest locked position, side rails up x2, call light within reach. Dressing noted to left foot, moderate amount of serosanguineous drainage noted. Patient denies pain. Patient able to ambulate with steady gait with walker. PICC line in place, noted to be patent and intact with good blood return. Dressing noted to have been changed on 02/14/19 and to be clean, dry, and intact. Instructed on POC and to call for assist PRN, will continue to monitor for changes Q1hr and PRN.
[2019-02-16 22:00] VITALS: BP 128/73
[2019-02-16] MEDS: ATORVASTATIN 20 MG TAB PO SCH (22:59)
[2019-02-16] MEDS: TEMAZEPAM 15 MG CAP PO PRN (22:59)
[2019-02-17] MEDS: SODIUM CHLORIDE 0.9% 1,000 ML IV SCH ×2 (01:20→20:00)
[2019-02-17 05:00] VITALS: BP 111/64
[2019-02-17 06:12] LABS: Basophils # (auto) 0.1 uL; Eosinophils # (auto) 0.1 uL; Eosinophils % (auto) 1.4 % (0.0-7.0); Lymphocytes # (auto) 1.9 uL; Monocytes # (auto) 0.5 uL; Neutrophils # (auto) 4.3 uL; White Blood Cell 6.9 10^3/uL (4.4-10.8)
[2019-02-17 06:14] LABS: Basophils % (auto) 0.7 % (0.0-2.0); Hematocrit 25.5 % (41.0-53.0); Hemoglobin 8.4 g/dL (13.5-17.5); Lymphocytes % (auto) 27.3 % (10.0-50.0); Mean Corpuscular Hemoglobin 28.6 pg (28.0-32.0); Mean Corpuscular Hgb Conc. 33.2 g/dL (32.0-36.0); Mean Corpuscular Volume 86.3 fL (80.0-100.0); Monocytes % (auto) 7.9 % (0.0-12.0); Neutrophils % (auto) 62.7 % (37.0-80.0); Platelet Count (auto) 473 10^3/uL (140-450); Red Blood Cells 2.95 10^6/uL (4.5-5.90); Red Cell Distribution Width 15.6 % (11.8-14.3)
[2019-02-17] MEDS: MEROPENEM 1GM IVPB 100 ML IV SCH ×3 (06:20→23:00)
[2019-02-17] MEDS: ACCU-CHEK COMFORT CURVE STRIP VI SCH ×4 (06:21→23:01)
[2019-02-17 06:35] LABS: Calcium 7.6 mg/dL (8.5-10.1); Potassium 3.4 mmol/L (3.5-5.1)
[2019-02-17] MEDS: InsuLIN REG 1unit/0.01ml Soln (100units/ml) SC SCH ×4 (07:00→23:18)
--- NOTE | 2019-02-17 07:00 | NUR ---
Dressing Change Dressing changed to left foot. Sites cleaned with wound cleanser, Xeroform applied to both sites on left foot, sterile 4 x 4 gauze applied on top of Xeroform to assist with absorption of drainage, and all wrapped with Kerlix. Patient tolerated well. No s/s of distress. Will continue to monitor.
--- NOTE | 2019-02-17 07:20 | NUR ---
Closing Note Patient lying in bed, awake and alert. No s/s of distress. Bed in lowest locked position, side rails up x2, call light within reach. Less than 50 ml of serosanguineous drainage emptied from MISBAH drains. Care endorsed to mohamud GREENBERG. Addendum: 02/17/19 at 0757 by CHENCHO PETERS RN RN CORRECTION: No drainage emptied from MISBAH drains, wrong patient. The rest of the note is correct as charted.
[2019-02-17 08:00] VITALS: BP 108/62
[2019-02-17] MEDS: VANCOMYCIN 1GM/250ML 250 ML IV SCH ×2 (10:50→20:42)
[2019-02-17 13:32] VITALS: BP 112/64
[2019-02-17 17:27] VITALS: BP 111/67
--- NOTE | 2019-02-17 17:30 | NUR ---
Patient Sat in Chair Patient used walker to ambulate to chair and sit. Tolerating well.
--- NOTE | 2019-02-17 19:28 | NUR ---
End of Shift Endorsed care to NOC nurse Felicia. Patient shows no signs of distress at this time.
[2019-02-17 22:00] VITALS: BP 132/72
[2019-02-17] MEDS: ATORVASTATIN 20 MG TAB PO SCH (23:00)
[2019-02-18 05:00] VITALS: BP 110/67
[2019-02-18] MEDS: MEROPENEM 1GM IVPB 100 ML IV SCH ×3 (06:43→21:57)
[2019-02-18] MEDS: ACCU-CHEK COMFORT CURVE STRIP VI SCH ×4 (06:43→21:58)
[2019-02-18] MEDS: InsuLIN REG 1unit/0.01ml Soln (100units/ml) SC SCH ×4 (07:00→22:03)
--- NOTE | 2019-02-18 07:05 | NUR ---
Closing Note Patient lying in bed, awake and alert. No s/s of distress. Bed in lowest locked position, side rails up x2, call light within reach. Care endorsed to dayshift RN.
--- NOTE | 2019-02-18 07:30 | NUR ---
Opening Shift Note Assuming care of patient at this time. Patient is awake and alert at this time. Patient denies pain and shows no signs or symptoms of shortness of breath. Patient is resting in bed. Bed is locked and lowered with side rails up x2. Instructed patient on the plan of care for today and to call for assistance as needed. Call light within reach. Will continue to round hourly.
[2019-02-18] MEDS: VANCOMYCIN 1GM/250ML 250 ML IV SCH ×2 (08:24→20:33)
[2019-02-18 08:28] VITALS: BP 124/70
--- NOTE | 2019-02-18 10:05 | NUR ---
Wound Care Changed dressings to patient's wounds at this time. Patient tolerated well.
--- NOTE | 2019-02-18 11:58 | NUR ---
NUTRITION CONSULT/ASSESSMENT NOTES Please refer to link notes of nutrition screen form filed under the intervention section of the plan of care for further details. Est. Needs: 1950 kcal to 2300 kcal (25-30 kcal/kgBW), 77 gms to 108 gms pro (1.0-1.4 gms/kgBW d/t severe hypoalbuminemia, wound healing). Will continue to monitor pertinent labs and reassess nutrient need prn Thank you for this consult. Addendum: 02/18/19 at [address] Amended: Links added.
[2019-02-18 12:07] VITALS: BP 129/75
[2019-02-18] MEDS: SODIUM CHLORIDE 0.9% 1,000 ML IV SCH ×2 (12:53→20:38)
[2019-02-18 17:08] VITALS: BP 137/78
--- NOTE | 2019-02-18 19:05 | NUR ---
Closing Shift Note Patient is resting in bed. Patient denies pain and shows no signs or symptoms of distress or shortness of breath. Will endorse care to the night time babysitter RN.
--- NOTE | 2019-02-18 19:10 | NUR ---
Opening Shift Note Assumed care of patient from day shift RN Doretha. Pt is awake and alert and oriented x4. No S/S of distress/SOB or pain. Safety maintained with bed rails upx2, locked and in lowest position with call kapoor within reach. Instructed on POC and to call for assist PRN, will continue to monitor for changes Q1hr and PRN.
[2019-02-18] MEDS: ATORVASTATIN 20 MG TAB PO SCH (21:58)
[2019-02-18 22:00] VITALS: BP 122/76
--- NOTE | 2019-02-18 23:30 | NUR ---
WOUND CARE Left foot wound dressings changed. Cleansed with wound cleanser, pat dry with sterile gauze, covered with Xeroform and reinforced with sterile 4x4 gauze, wrapped with Kerlix. Pt tolerated well.
[2019-02-18] MEDS: TEMAZEPAM 15 MG CAP PO PRN (23:37)
[2019-02-19 05:00] VITALS: BP 148/83
[2019-02-19] MEDS: ACCU-CHEK COMFORT CURVE STRIP VI SCH ×4 (06:27→21:53)
[2019-02-19] MEDS: MEROPENEM 1GM IVPB 100 ML IV SCH ×3 (06:27→21:53)
[2019-02-19] MEDS: InsuLIN REG 1unit/0.01ml Soln (100units/ml) SC SCH ×4 (06:33→21:56)
--- NOTE | 2019-02-19 07:09 | NUR ---
Closing Shift Note Endorsed care to day shift YARI Coyne. Pt resting in bed, no s/s distress.
--- NOTE | 2019-02-19 07:30 | NUR ---
Opening Shift Note Assuming care of patient at this time. Patient is resting in bed. Patient denies pain and shows no signs or symptoms of distress. Bed is locked and lowered with side rails up x2. Instructed patient on the plan of care for the today and to call for assistance as needed. Call light within reach. Will continue to round hourly.
[2019-02-19] MEDS: VANCOMYCIN 1GM/250ML 250 ML IV SCH ×2 (08:46→20:39)
[2019-02-19 09:06] VITALS: BP 119/71
[2019-02-19 13:03] VITALS: BP 101/65
--- NOTE | 2019-02-19 14:21 | NUR ---
Dressing Changed Changed dressing to patient's foot at this time per doctor's orders. Patient tolerated well.
--- NOTE | 2019-02-19 16:28 | NUR ---
Spoke with Home Economics Extension Worker Spoke with nurses educator, Homa. She has been trying to get a hold of patient. Gave her the patient's information. She will follow-up with patient.
[2019-02-19 17:10] VITALS: BP 114/71
[2019-02-19] MEDS: SODIUM CHLORIDE 0.9% 1,000 ML IV SCH (19:31)
--- NOTE | 2019-02-19 19:40 | NUR ---
Closing Shift Note Patient is resting in bed. Patient shows no signs or symptoms of distress. Report given. Will endorse to the retail shift supervisor RN.
[2019-02-19] MEDS: ATORVASTATIN 20 MG TAB PO SCH (21:53)
[2019-02-19 22:00] VITALS: BP 133/78
[2019-02-19] MEDS: TEMAZEPAM 15 MG CAP PO PRN (22:11)
--- NOTE | 2019-02-19 22:30 | NUR ---
WOUND CARE Left foot wound dressings changed per order. Cleansed with wound cleanser, pat dry with sterile gauze, covered with Xeroform and reinforced with sterile 4x4 gauze, wrapped with Kerlix. Pt tolerated well.
[2019-02-20 05:31] VITALS: BP 130/74
[2019-02-20] MEDS: MEROPENEM 1GM IVPB 100 ML IV SCH ×3 (05:38→21:49)
[2019-02-20] MEDS: InsuLIN REG 1unit/0.01ml Soln (100units/ml) SC SCH ×4 (06:50→21:49)
[2019-02-20] MEDS: ACCU-CHEK COMFORT CURVE STRIP VI SCH ×4 (06:50→21:49)
--- NOTE | 2019-02-20 07:08 | NUR ---
Closing Shift Note Endorsed care to day shift RN Didian. Pt resting in bed, no s/s distress.
--- NOTE | 2019-02-20 07:35 | NUR ---
RECEIVED REPORT AND ASSUME CARE OF PT. A/OX4. DENIED S/S ACUTE DISTRESS. UPDATE PT WITH POC. BED AT LOWEST POSITION. CALL LIGHT AND BELONGINGS WITHIN REACH. WILL CONT TO MONITOR.
[2019-02-20 08:00] VITALS: BP 116/70
[2019-02-20] MEDS: VANCOMYCIN 1GM/250ML 250 ML IV SCH ×2 (08:52→20:28)
[2019-02-20 12:00] VITALS: BP 127/76
[2019-02-20] MEDS: SODIUM CHLORIDE 0.9% 1,000 ML IV SCH (12:40)
[2019-02-20 16:00] VITALS: BP 120/69
--- NOTE | 2019-02-20 19:18 | NUR ---
PT RESTING IN BED. NO S/S ACUTE DISTRESS NOTED. ENDORSED CARE TO NIGHT NURSE.
--- NOTE | 2019-02-20 19:40 | NUR ---
Opening Shift Note Assumed care of patient, awake and alert. No S/S of distress/SOB or pain. Dressing to left foot intact, elevated with pillows. Instructed on POC and to call for assist PRN, patient verbalized understanding, call light within reach, will continue to monitor for changes Q1hr and PRN.
[2019-02-20] MEDS: ATORVASTATIN 20 MG TAB PO SCH (21:37)
[2019-02-20] MEDS: TEMAZEPAM 15 MG CAP PO PRN (21:37)
[2019-02-20 21:55] VITALS: BP 134/78
[2019-02-21 04:49] VITALS: BP 99/55
--- NOTE | 2019-02-21 05:00 | NUR ---
Dressing changed to left foot, cleansed with wound cleanser, xeroform used and packed with 4x4 and covered with kerlix, patient tolerated well
[2019-02-21] MEDS: MEROPENEM 1GM IVPB 100 ML IV SCH (05:41)
[2019-02-21] MEDS: SODIUM CHLORIDE 0.9% 1,000 ML IV SCH (05:41)
[2019-02-21] MEDS: ACCU-CHEK COMFORT CURVE STRIP VI SCH ×2 (05:41→11:47)
[2019-02-21] MEDS: InsuLIN REG 1unit/0.01ml Soln (100units/ml) SC SCH ×2 (05:42→11:30)
[2019-02-21 07:02] LABS: Basophils # (auto) 0 uL; Eosinophils # (auto) 0.1 uL; Hematocrit 28.4 % (41.0-53.0); Hemoglobin 9.2 g/dL (13.5-17.5); Nucleated Red Blood Cells % 0.1 %; Platelet Count (auto) 463 10^3/uL (140-450)
[2019-02-21 07:04] LABS: Basophils % (auto) 0.5 % (0.0-2.0); Eosinophils % (auto) 1.3 % (0.0-7.0); Lymphocytes # (auto) 1.7 uL; Mean Corpuscular Hemoglobin 28.2 pg (28.0-32.0); Mean Corpuscular Hgb Conc. 32.5 g/dL (32.0-36.0); Mean Corpuscular Volume 86.5 fL (80.0-100.0); Monocytes # (auto) 0.5 uL; Monocytes % (auto) 7.4 % (0.0-12.0); Neutrophils # (auto) 4.2 uL; Neutrophils % (auto) 64.8 % (37.0-80.0); Red Blood Cells 3.29 10^6/uL (4.5-5.90); Red Cell Distribution Width 16.2 % (11.8-14.3); White Blood Cell 6.4 10^3/uL (4.4-10.8)
[2019-02-21 07:20] LABS: BUN/Creatinine Ratio 18.5; Calcium 8.2 mg/dL (8.5-10.1); Potassium 3.5 mmol/L (3.5-5.1)
[2019-02-21] MEDS: VANCOMYCIN 1GM/250ML 250 ML IV SCH (08:57)
[2019-02-21 09:00] VITALS: BP 135/76
--- NOTE | 2019-02-21 09:48 | NUR ---
Contact bedside RN (Divian) requesting patient be provided with one day of wound care supplies before D/C. Informed CM ( LES).
--- NOTE | 2019-02-21 11:25 | NUR ---
I faxed resume home IV ATB order to [facility] and resume home health order to [facility].
--- NOTE | 2019-02-21 12:10 | NUR ---
assessment Patient is a 53 year old male who is alert and oriented. Patients cognitive abilities are intact. Prior to admission patient lived home with family and functioned with assistance since his last admission. Patient informed me he has been seen by [facility]. Patient informed me that on his first visit from [facility] the RN became ill and called off. Patient called [facility] and they sent a replacement to see him for wound care. Patient requested for the RN to call him prior to arriving. Dolores RN from [facility] called patient and she informed him she had to stop by the office for supplies prior to arriving at his home. Dolores then did his wound care according to Dr jeffrey directions. Patient was then seen by Kelly wound care nurse. Per patient "Kelly is great and awesome". Patient also informed me that Dr Elena asked him to write a complaint against [facility] and send it to his office. Patient informed me he didn't know, so he followed direction of Dr Elena. Patient may need to resume IV ABX on discharge. Patient informed me his is teachable and so is he. Patient informed me he has good family support. I informed patient he has a right to speak to a social group worker regarding all care. I informed patient he has a right to participate in any and all discharge planning. Patient is aware of visiting hours on the hospital floor. I informed patient he has a right to privacy. Patient has a POA and advanced directive. Patient verbalized understanding and agreed to discharge plan. Addendum: 02/21/19 at 1216 by Sharri TORRES Amended: Links added.
[2019-02-21 13:00] VITALS: BP 132/76
[2019-02-21 13:22] LABS: Folate (Folic Acid) 7.45 ng/mL (5.38-24)
--- NOTE | 2019-02-21 14:28 | NUR ---
I spoke with Zuleyka at [facility], she said they will resume home health for wound care tomorrow 02/22. I spoke with Tiff at [facility] [phone], she said they will resume care as well and that patient already has a supply of IV Vancomycin at home-I faxed her clinical information to alternate fax number as requested [phone]. I also faxed current wound care order to [facility] [phone].
--- NOTE | 2019-02-21 16:29 | NUR ---
PT A/OX4. DENIED S/S ACUTE DISTRESS. DC INSTRUCTIONS GIVEN AND PT VERBALIZED UNDERSTANDING.EMPHASIZED NEED FOR F/U APPOINTMENT. PICC LINE IN PLACED. ONE DAY WOUND DRESSING SUPPLY GIVEN TO PT. PT WAITING FOR HIS RIDE HOME. CHARGE NURSE AWARE
--- NOTE | 2019-02-21 16:54 | NUR ---
PT LEFT UNIT ACCOMPANIED BY FAMILY IN STABLE CONDITION.
[2019-02-21] MEDS ORDERED: Pro-Stat SF 30ml Vanilla PO SCH (18:00)
== END 2019-02-21 16:55 | disposition home health service (06) | DRG 623 ==
LOC: CENTRAL 14:22
PROVIDERS: ADMIT Internal Medicine; ATTEND Internal Medicine
PROC: 0JBR0ZZ Excision of Left Foot Subcutaneous Tissue and Fascia, Open Approach (ICD-10-PCS; 2019-02-16)
PROC: 0MD Bursae and Ligaments, Extraction (ICD-10-PCS; principal; 2019-02-16 10:19)
DX: E11.69 Type 2 diabetes mellitus with other specified complication (principal); L02.416 Cutaneous abscess of left lower limb; L03.116 Cellulitis of left lower limb; M86.8X7 Other osteomyelitis, ankle and foot; Z82.49 Family history of ischemic heart disease and other diseases of the circulatory system; E78.5 Hyperlipidemia, unspecified; D64.9 Anemia, unspecified
CPT/HCPCS: 36415; 80048; 80053; 80202; 82607; 82746; 82962; 83605; 85025; 85610; 85652; 85730; 86141; 86850; 86900; 86901; 87040; 87070; 87075; 87077; 87186; 87205; 97163; G0378; J0330; J0690; J1815; J2185; J2250; J2704; J3490

== ENCOUNTER 2019-02-26 11:30 | Inpatient (IN) | payer BC ==
[~2019-02-26] VITALS: Ht 175.3 cm; Wt 72.5 kg
[~2019-02-26 11:30] MED LIST: ASPI81TA27 PO; ATOR20TA50 PO; FERR-20 PO; INSLANTI SC; LISI-275 PO; METF-370 PO; MULTCAP45 PO; NIAC500T9 PO; OMEG300C7 PO; PANT40TA2 PO; POM PO
[2019-02-26 12:13] LABS: Basophils # (auto) 0.1 uL; Basophils % (auto) 0.8 % (0.0-2.0); Eosinophils # (auto) 0.1 uL; Hematocrit 33.1 % (41.0-53.0); Hemoglobin 10.6 g/dL (13.5-17.5); Monocytes # (auto) 0.7 uL; Red Blood Cells 3.82 10^6/uL (4.5-5.90); Red Cell Distribution Width 16.6 % (11.8-14.3)
[2019-02-26 12:14] LABS: Eosinophils % (auto) 1.5 % (0.0-7.0); Lymphocytes # (auto) 2.2 uL; Lymphocytes % (auto) 22.4 % (10.0-50.0); Mean Corpuscular Hemoglobin 27.7 pg (28.0-32.0); Mean Corpuscular Volume 86.6 fL (80.0-100.0); Monocytes % (auto) 7.3 % (0.0-12.0); Neutrophils # (auto) 6.6 uL; Nucleated Red Blood Cells % 0.1 %; Platelet Count (auto) 526 10^3/uL (140-450); White Blood Cell 9.8 10^3/uL (4.4-10.8)
[2019-02-26 12:30] LABS: Albumin 2.6 g/dL (3.4-5.0); Calcium 8.4 mg/dL (8.5-10.1); Potassium 3.6 mmol/L (3.5-5.1)
[2019-02-26] MEDS ORDERED: CLINDAMYCIN 600MG IV 50 ML IV ONE (12:30)
[2019-02-26 12:36] LABS: Bilirubin, Total 0.4 mg/dL (0.2-1.0); Total Protein 7.6 g/dL (6.4-8.2)
[2019-02-26] MEDS ORDERED: HYDROcodone-ACET 5/325MG TAB PO PRN (15:30)
[2019-02-26] MEDS ORDERED: ACETAMINOPHEN 500 MG TAB PO PRN (15:30)
[2019-02-26] MEDS ORDERED: DEXTROSE (50%) 50ML SYRG IV PRN (15:30)
[2019-02-26] MEDS ORDERED: NITROGLYCERIN 0.4 MG SL TAB SL PRN (15:30)
[2019-02-26] MEDS ORDERED: VANCOMYCIN PER PHARMACY 0 MG IV SCH (15:30)
[2019-02-26] MEDS ORDERED: ONDANSETRON HCL 4 MG/2 ML VIAL IV PRN (15:30)
[2019-02-26] MEDS ORDERED: MORPHINE SULF INJ 2 MG/ML SYRINGE 1ML IV PRN ×2 (15:30)
[2019-02-26] MEDS: VANCOMYCIN 1GM/250ML 250 ML IV SCH (16:22)
[2019-02-26] MEDS: InsuLIN REG 1unit/0.01ml Soln (100units/ml) SC SCH ×2 (17:00→22:00)
[2019-02-26] MEDS: ACCU-CHEK COMFORT CURVE STRIP VI SCH ×2 (17:15→23:03)
--- NOTE | 2019-02-26 18:00 | NUR ---
opening patient on the unit, will f/u with assessment.
[2019-02-26] MEDS ORDERED: SACC250C PO (18:57)
--- NOTE | 2019-02-26 19:00 | NUR ---
nurse note patient, has declined to take wound dressing off to take pictures d/t not able to find xeroform dressing supply to change the wound after. Took pictures of the top of L foot. Endorsed to noc nurse, to try to find larger xeroform dressings to attempt to change dressing if found.
--- NOTE | 2019-02-26 19:30 | NUR ---
Opening Shift Note Assumed care of patient, awake and alert discussing current dressing of L foot wound with day and noc RNs. No S/S of distress/SOB or pain. Instructed on POC and to call for assist PRN. This RN will continue to monitor for changes PRN. Bed in low position, nurse call light at pt's side. Urinal x2 at bedside per pt request prev. HOB in semi-Raya's position. Dressing to L foot CD&I.
--- NOTE | 2019-02-26 20:18 | NUR ---
Called scada operator twice to reach Dr. Nancy De Santiago. Was transferred both times to Dr's office. Answering message states to choose #1 if wanting DrZeny telephone ad taker, the states that selection is not valid. Attempted to call the office number directly; same message and failure received. Will not remove pt's dressing as changed this a.m. per pt. Will alert day RN in a.m. to follow through with /Wound RN.
[2019-02-26 21:58] VITALS: BP 119/72
[2019-02-26] MEDS: ATORVASTATIN 20 MG TAB PO SCH (22:55)
[2019-02-27] MEDS: VANCOMYCIN 1GM/250ML 250 ML IV SCH ×3 (02:00→22:20)
[2019-02-27 05:12] VITALS: BP 116/70
[2019-02-27] MEDS: ACCU-CHEK COMFORT CURVE STRIP VI SCH ×4 (06:49→22:20)
[2019-02-27] MEDS: InsuLIN REG 1unit/0.01ml Soln (100units/ml) SC SCH ×4 (06:50→22:00)
[2019-02-27 07:16] LABS: Basophils # (auto) 0.1 uL; Eosinophils # (auto) 0.2 uL; Eosinophils % (auto) 2.4 % (0.0-7.0); Hemoglobin 9.7 g/dL (13.5-17.5); Lymphocytes # (auto) 1.7 uL; Lymphocytes % (auto) 25.8 % (10.0-50.0); Mean Corpuscular Hemoglobin 28.3 pg (28.0-32.0); Mean Corpuscular Hgb Conc. 33.3 g/dL (32.0-36.0); Mean Corpuscular Volume 84.9 fL (80.0-100.0); Monocytes # (auto) 0.6 uL; Monocytes % (auto) 9.3 % (0.0-12.0); Neutrophils # (auto) 4.1 uL; Neutrophils % (auto) 61.5 % (37.0-80.0); Nucleated Red Blood Cells % 0.1 %; Platelet Count (auto) 408 10^3/uL (140-450); Red Blood Cells 3.42 10^6/uL (4.5-5.90); Red Cell Distribution Width 16.5 % (11.8-14.3); White Blood Cell 6.7 10^3/uL (4.4-10.8)
[2019-02-27 07:21] LABS: INR 0.96 (0.9-1.15); Partial Thromboplastin Time 27.3 sec (23.78-33.04); Prothrombin Time 10.3 sec (9.27-12.13)
[2019-02-27 07:35] LABS: Potassium 3.5 mmol/L (3.5-5.1)
--- NOTE | 2019-02-27 07:40 | NUR ---
opening patient in bed, bed in lowest position, call light within reach. No distress noted at this time. Will f/u with morning assessment. Patient still currently has same bandage from yesterday morning to the L foot. Myself and noc nurse, have not found correct xeroform dressing to use for the patient, per patient request he did not want us to change dressing unless we had the xeroform. Unable to take admission pictures, the wound came to the floor dressed and covered. Took pictures of uncovered wound (top of L foot) Will await wound care nurse, for proper supplies and assist with pictures then today.
[2019-02-27 08:09] VITALS: BP 115/68
[2019-02-27] MEDS: LISINOPRIL 5 MG TAB PO SCH (10:58)
[2019-02-27] MEDS: PANTOPRAZOLE 40 MG TAB PO SCH (10:58)
--- NOTE | 2019-02-27 11:27 | NUR ---
WOUND CARE NURSE AT BEDSIDE
--- NOTE | 2019-02-27 11:27 | NUR ---
NURSE NOTE TOOK WOUND CULTURE AND SENT TO LAB. WOUND CARE NURSE TOOK PICTURES OF THE WOUNDS
--- NOTE | 2019-02-27 11:53 | NUR ---
WOUND CARE NOTE: Wound care in to see patient per wound care request regarding L foot wounds that are noted present on admission. Patient is 53 years old male with admitting diagnosis of L foot Osteomyelitis. Patient is resting in bed in Rm. 295B. He's awake, alert and oriented. Patient denies any pain at this time. He's self turn and reposition. His current Augustin score is 19. Noted Patient's L dorsal foot has open full thickness ulceration measuring 12x 8x1.2cm. Wound bed is red with granulation tissue,visible tendon, minimal yellow slough/adipose tissue with brown necrotic tissue to lateral aspect of wound edges. Benjamín wound is pink with moderate serous drainage noted, no odor noted. Another open wound noted to his L medial ankle measuring 2.2 x5cmx0.3cm. Wound bed is red with with yellow slough, at center, benjamín wound is pink, minimal serous drainage noted, no odor noted. Patient undergone I&D and debridement of L foot wound on his previous admission. 1x1cm dry scabbed wound also noted to his distal L dorsal foot with pink benjamín wound. 0.5x0.8cm open resolving wound noted to distal aspect of his left great toe. Patient reported that he thinks his wounds/infection started when he hurt his L great toe then developed abscess wound to L dorsal foot, discharged home and came back with L medial ankle/foot wound. Patient reported that he's back per MD's recommendation. He added that he's also concerned about scabbed wound to his L dorsal foot but he reported that he's seen by Dr. De Santiago yesterday and checked the wound but no drainage noted. Cleansed patient's L foot wounds with NS , bedside nurse took specimen for wound culture and sent to lab for processing. Wound cleansed with wound cleanser, patted dry with sterile gauze, covered open wounds with Xeroform dressing, padded with layers of sterile 4x4's gauze,wrapped with Kerlix and secured with tape; Covered dry resolving wound to L great toe with Bandaid per MD order. Photograph of wounds are taken for reference. Patient tolerated well. Patient will benefit with application of Thera honey gel or honey gauze to area of L foot wounds where there's brown necrotic tissue and slough to help with autolytic debridement. RECOMMENDATION: Daily/PRN dressing change to L foot wound per MD order, Dietary consults , elevate affected extremity on pillows, continue monitoring by wound care while patient is hospitalized. Addendum: 02/27/19 at 1531 by Martha Beach RN Amended: Links added.
[2019-02-27 12:24] VITALS: BP 149/86
[2019-02-27 16:21] VITALS: BP 130/80
--- NOTE | 2019-02-27 19:35 | NUR ---
OPENING NOTES RECEIVED REPORT FROM DAY SHIFT NURSE. PT IS AWAKE AND ORIENTATED X 4 WITH NO S/S OF DISTRESS NOR PAIN. PT WOUND DRESSING ON LEFT FOOT IS CLEAN, DRY AND INTACT. BED IS IN LOWEST POSITION WITH SIDE RAILS UP X 2. BED BRAKES ARE LOCKED AND CALL LIGHT IS WITH IN REACH. WILL MONITOR Q 1 HR.
[2019-02-27 20:00] VITALS: BP 115/68
[2019-02-27 22:00] VITALS: BP 117/70
[2019-02-27] MEDS ORDERED: INSULIN LANTUS (GLARGINE) 1 /0.01ml (100units/ml) SC SCH (22:00)
[2019-02-27] MEDS: ATORVASTATIN 20 MG TAB PO SCH (22:21)
[2019-02-28 05:09] VITALS: BP 120/71
[2019-02-28] MEDS: ACCU-CHEK COMFORT CURVE STRIP VI SCH ×3 (06:05→16:37)
[2019-02-28] MEDS: InsuLIN REG 1unit/0.01ml Soln (100units/ml) SC SCH ×3 (06:06→16:37)
--- NOTE | 2019-02-28 07:27 | NUR ---
endorsed care to day shift nursemayte.
--- NOTE | 2019-02-28 07:30 | NUR ---
OPENING NOTE OBSERVED PT SITTING UP IN BED, EATING BREAKFAST. NO SOB/DISTRESS NOTED. PT DENIES ANY PAIN AT THIS TIME. UPDATED ON POC, VERBALIZED UNDERSTANDING. ENCOURAGED PT TO CONTACT STAFF FOR PRN ASSISTANCE. CALL LIGHT WITHIN REACH. FALL PRECAUTIONS IN PLACE. WILL CONTINUE TO MONITOR Q1H AND PRN. CONTINUE PT CARE.
[2019-02-28] MEDS: VANCOMYCIN 1GM/250ML 250 ML IV SCH (08:26)
[2019-02-28 09:00] VITALS: BP 115/70
[2019-02-28] MEDS: PANTOPRAZOLE 40 MG TAB PO SCH (09:39)
[2019-02-28] MEDS: LISINOPRIL 5 MG TAB PO SCH (09:40)
[2019-02-28] MEDS ORDERED: CEFTRIAXONE SODIUM 2 GM in D5W 5% 50 ML IV SCH (10:00)
--- NOTE | 2019-02-28 11:20 | NUR ---
WOUND CARE WOUND CARE PROVIDED PER INFRASTRUCTURE MANAGER ORDER. WOUND CARE PROVIDED USING STERILE TECHNIQUE. GREAT TOE COVERED WITH DRY DRESSING. PT TOLERATED WELL. PHOTO TAKEN OF WOUNDS PRIOR TO DRESSING. FORM PLACED IN WOUND CARE BOX. PT EXPRESSING CONCERNS REGARDING OUTER BORDER/COLORING OF DORSAL FOOT WOUND, PT STATING 'IT LOOKS DARKER TO ME'. ADMISSION PICTURE REVIEWED FOR REFERENCE, NO CHANGE NOTED. INFORMED DR. MCKEON. STATING NOT TO WORRY. HE WILL F/U WITH PATIENT AFTER DISCHARGE.
--- NOTE | 2019-02-28 11:30 | NUR ---
AT BEDSIDE DR. TSANG AT BEDSIDE DISCUSSING POC/DC PLAN WITH PT. PT VERBALIZED UNDERSTANDING.
[2019-02-28 12:17] VITALS: BP 115/70
[2019-02-28 13:06] VITALS: BP 118/78
--- NOTE | 2019-02-28 13:47 | NUR ---
SPOKE TO MD PATIENT STATING THAT AFTER SPEAKING TO HOME HEALTH RN, SHE HAS STATED THAT SHE NEEDS SUPPLIES FROM HOSPITAL FOR WOUND CARE. INQUIRED TO WHAT SUPPLIES PT WAS REFERRING TO. PT STATING THAT [employer] DOES NOT HAVE HONEY FOR WOUND BED. INFORMED PT I COULD SPEAK TO DR. MCKEON REGARDING WHETHER OR NOT HE WANTED HONEY ORDER TO BE CONTINUED OUTPATIENT. MD STATING NOT NECESSARY, OK TO CONTINUE WITH PREVIOUS WOUND CARE ORDER FOR HH.
--- NOTE | 2019-02-28 15:06 | NUR ---
DRESSING CHANGE PATIENT REQUESTING ADDITIONAL KERLIX BE APPLIED TO LLE WOUNDS. PT REFERENCING PREVIOUS WOUND ON HEEL. NO WOUND NOTED TO HEEL AT THIS TIME. OPTIFOAM DRESSING APPLIED PREVENTATIVE AND WOUNDS RE-WRAPPED WITH KERLIX. PT TOLERATED WELL.
--- NOTE | 2019-02-28 15:26 | NUR ---
Contact [facility] ([facility]) [phone]. Services to start Friday 03/02 to continue previous wound care.Instructed bedside RN (Martha) to provide patient with 1 prn supplies for wound treatment upon D/C. Asset Analyst Tarun will be completing IV ATx request.
--- NOTE | 2019-02-28 15:32 | NUR ---
DISCHARGE RECEIVED PHONE CALL FROM CRISTA MICHEL REGARDING IV ABX ORDER. ANAND STATING ADDITIONAL INFORMATION IS NEEDED FOR ORDER TO BE SENT. SPOKE TO DR. MCKEON REGARDING ABX ORDER. CONSULT PLACED. ANAND INFORMED OF NEW ORDER.
--- NOTE | 2019-02-28 15:53 | NUR ---
ORDER AND CLINICALS FAXED TO [facility] TO RESUME HOME VANCO. DELIVERY WILL BE TONIGHT OR TOMORROW. SPOKE WITH PATIENT AND HE CONFIRMED HE STILL HAS TWO BAGS OF MEDICATION AT HOME. [facility] WILL [facility]. THEY WILL CALL PATIENT TO SCHEDULE A TIME FOR RESUMPTION OF CARE. PATIENT UNDERSTANDS DISCHARGE PLAN AND CONFIRMS HE HAS PHONE NUMBERS FOR [facility] AND [facility].
[2019-02-28] MEDS ORDERED: VANCOMYCIN 1GM/250ML 250 ML IV SCH (16:00)
--- NOTE | 2019-02-28 16:08 | NUR ---
DISCHARGE CALLED CRISTA MICHEL, TO CONFIRM PT OK TO BE DC'D. PT CLEARED FOR DC.
--- NOTE | 2019-02-28 16:14 | NUR ---
assessment Patient is a 53 year old male who is alert and oriented. Patients cognitive abilities are intact. Prior to admission patient lived home with his Karen and functioned with assistance. Patient informed me he is on service with [facility]. Patient informed me his is teachable and has been helping with his IV ABX. Patient informed me he has good family support. I informed patient he has a right to speak to a social work program coordinator regarding all care. I informed patient he has a right to participate in any and all discharge planning. Patient is aware of visiting hours on the hospital floor. I informed patient he has a right to privacy. Patient has a POA and advanced directive. Patient verbalized understanding and agreed to discharge plan. Per ss consult IV ABX Vancomycin 1 gm daily for 5 weeks. Pharmacy to dose. Tarun case therapist is working on home health and IV ABX. Addendum: 02/28/19 at 1616 by Sharri TORRES Amended: Links added.
[2019-02-28 17:00] VITALS: BP 133/76
--- NOTE | 2019-02-28 17:50 | NUR ---
Discharge instructions given as ordered. Encourage to follow up with PMD as instructed. All questions and concerns addressed. Patient verbalized understanding. Medication reconciliation form completed and copy given to patient. PICC line continued for home IV antibiotics. Flushed and capped prior to departure. Patient taken off unit via wheelchair accompanied by staff and family member. No distress noted at time of departure.
== END 2019-02-28 18:03 | disposition home health service (06) | DRG 540 ==
LOC: ER 11:30 → OVERFLOW 15:28 → WEST WING 18:07
PROVIDERS: ADMIT Nurse Practitioner Acute Care; ATTEND Internal Medicine
DX: M86.9 Osteomyelitis, unspecified (principal); E44.0 Moderate protein-calorie malnutrition; E13.9 Other specified diabetes mellitus without complications; D64.9 Anemia, unspecified; E78.00 Pure hypercholesterolemia, unspecified; I10 Essential (primary) hypertension
CPT/HCPCS: 36415; 73630; 80048; 80053; 80202; 82962; 83036; 85025; 85610; 85652; 85730; 86141; 87040; 87081; 87205; 94761; 96365; 96367; G0378; J0696; J1815; J3490; J7060

== ENCOUNTER 2019-04-10 06:34 | Day surgery (SDC) | payer BC ==
[2019-04-05 14:55] LABS: Basophils # (auto) 0.1 uL; Basophils % (auto) 0.8 % (0.0-2.0); Eosinophils # (auto) 0.2 uL; Eosinophils % (auto) 2.4 % (0.0-7.0); Hematocrit 37.8 % (41.0-53.0); Hemoglobin 12.4 g/dL (13.5-17.5); Mean Corpuscular Hemoglobin 27.7 pg (28.0-32.0); Mean Corpuscular Hgb Conc. 32.9 g/dL (32.0-36.0); Mean Corpuscular Volume 84.4 fL (80.0-100.0); Monocytes # (auto) 0.5 uL; Monocytes % (auto) 7.3 % (0.0-12.0); Neutrophils # (auto) 3.7 uL; Neutrophils % (auto) 58.5 % (37.0-80.0); Platelet Count (auto) 372 10^3/uL (140-450); Red Blood Cells 4.48 10^6/uL (4.5-5.90); White Blood Cell 6.3 10^3/uL (4.4-10.8)
[2019-04-05 15:08] LABS: INR 0.94 (0.9-1.15)
[2019-04-05 15:28] LABS: Potassium 4.6 mmol/L (3.5-5.1)
[2019-04-05 15:38] LABS: Albumin 3.6 g/dL (3.4-5.0); BUN/Creatinine Ratio 24.8; Bilirubin, Total 0.3 mg/dL (0.2-1.0); Calcium 9.2 mg/dL (8.5-10.1); Total Protein 8.2 g/dL (6.4-8.2)
[2019-04-05 15:54] LABS: Urine Bacteria NONE SEEN /hpf (None Seen); Urine Blood Negative /uL (Negative); Urine Hyaline Cast FEW /lpf (0 - 2); Urine Mucus FEW (None Seen); Urine Specific Gravity 1.015 (1.001-1.035); Urine WBC 1 /hpf (0 - 3)
[~2019-04-10] VITALS: Ht 175.3 cm; Wt 71.2 kg
[2019-04-10] MEDS ORDERED: ceFAZolin 1GM/50ML 50 ML IV ONE (07:08)
[2019-04-10] MEDS ORDERED: PROPOFOL 10 MG/ML 20 ML IV ONE (07:50)
[2019-04-10] MEDS ORDERED: MIDAZOLAM HCL 1MG/1ML-2 ML VIAL ONE (07:51)
[2019-04-10] MEDS ORDERED: ceFAZolin 1GM VL ONE (08:13)
[2019-04-10] MEDS ORDERED: ROPIVACAINE 0.5% (5MG/ML) 20ML AMPULE IJ ONE (08:13)
[2019-04-10] MEDS ORDERED: NEOMYCIN-BACITRACIN-POLYM 15GM TOP OINT TOP ONE (08:13)
[2019-04-10] MEDS ORDERED: diphenhdrAMINE HCL 50 MG/1 ML VL ONE (08:32)
[2019-04-10] MEDS ORDERED: GLYCOPYRROLATE 0.2 MG/ML 1ML VIAL ONE (08:32)
[2019-04-10] MEDS ORDERED: METOCLOPRAMIDE HCL 5MG/ml INJ 2ml VIAL ONE (08:32)
[2019-04-10] MEDS ORDERED: ONDANSETRON HCL 4 MG/2 ML VIAL IV ONE (08:45)
[2019-04-10] MEDS ORDERED: HYDROmorphone HCL 2 MG/ML VL IV PRN (08:45)
[2019-04-10] MEDS ORDERED: NALOXONE HCL 0.4 MG/ML VIAL IV PRN (08:45)
[2019-04-10] MEDS ORDERED: ACCU-CHEK COMFORT CURVE STRIP VI ONE (08:45)
[2019-04-10] MEDS ORDERED: LIDOCAINE 2% (LOCAL ANESTH.) PF 5ml SDV ONE (08:48)
[2019-04-10 09:48] VITALS: BP 111/71
== END 2019-04-10 09:48 | disposition home or self-care (01) ==
LOC: SUR 06:34
PROVIDERS: ATTEND Podiatrist Foot & Ankle Surgery
DX: E11.621 Type 2 diabetes mellitus with foot ulcer (principal); L97.528 Non-pressure chronic ulcer of other part of left foot with other specified severity; E66.9 Obesity, unspecified; Z79.84 Long term (current) use of oral hypoglycemic drugs; Z79.4 Long term (current) use of insulin; Z80.51 Family history of malignant neoplasm of kidney; Z68.23 Body mass index [BMI] 23.0-23.9, adult
CPT/HCPCS: 15004; 15271; 15275; 15276; 36415; 80053; 81001; 82962; 85025; 85610; 85730; 87070; 87075; 87205; 88304; 88312; 88313; C1887; C9354; J0690; J1200; J2001; J2250; J2704; J2765; J2795; Q4128

== ENCOUNTER → 2019-04-10 | Outpatient (CLI) | payer BC ==
[~2019-04-10] MED LIST changes: -NIAC500T9 PO; -POM PO; +SACC250C PO
[2019-04-10 10:23] LABS: Basophils # (auto) 0 uL; Basophils % (auto) 0.9 % (0.0-2.0); Eosinophils # (auto) 0.1 uL; Eosinophils % (auto) 2.5 % (0.0-7.0); Hematocrit 37.8 % (41.0-53.0); Hemoglobin 12.4 g/dL (13.5-17.5); Lymphocytes # (auto) 1.8 uL; Lymphocytes % (auto) 32.9 % (10.0-50.0); Mean Corpuscular Hemoglobin 27.6 pg (28.0-32.0); Mean Corpuscular Hgb Conc. 32.7 g/dL (32.0-36.0); Mean Corpuscular Volume 84.5 fL (80.0-100.0); Monocytes # (auto) 0.5 uL; Monocytes % (auto) 8.5 % (0.0-12.0); Neutrophils # (auto) 3.1 uL; Neutrophils % (auto) 55.2 % (37.0-80.0); Nucleated Red Blood Cells % 0.1 %; Platelet Count (auto) 338 10^3/uL (140-450); Red Blood Cells 4.48 10^6/uL (4.5-5.90); Red Cell Distribution Width 17.2 % (11.8-14.3); White Blood Cell 5.6 10^3/uL (4.4-10.8)
[2019-04-10 10:35] LABS: Albumin 3.3 g/dL (3.4-5.0); Calcium 8.9 mg/dL (8.5-10.1); Potassium 4.3 mmol/L (3.5-5.1)
[2019-04-10 10:40] LABS: BUN/Creatinine Ratio 28.6; Bilirubin, Total 0.2 mg/dL (0.2-1.0); Total Protein 7.8 g/dL (6.4-8.2)
== END | disposition home or self-care (01) ==
LOC: LAB 10:03
PROVIDERS: ATTEND Internal Medicine
DX: E78.5 Hyperlipidemia, unspecified (principal)
CPT/HCPCS: 36415; 80053; 80061; 83036; 85025

== ENCOUNTER → 2019-06-25 | Outpatient (CLI) | payer BC ==
[~2019-06-25] MED LIST changes: +ASPI-404 PO; -ASPI81TA27 PO
[2019-06-25 11:11] LABS: Basophils # (auto) 0 uL; Basophils % (auto) 0.5 % (0.0-2.0); Eosinophils # (auto) 0.1 uL; Eosinophils % (auto) 2.4 % (0.0-7.0); Hematocrit 40.2 % (41.0-53.0); Hemoglobin 13.6 g/dL (13.5-17.5); Lymphocytes # (auto) 1.8 uL; Lymphocytes % (auto) 30.9 % (10.0-50.0); Mean Corpuscular Hemoglobin 29.4 pg (28.0-32.0); Mean Corpuscular Hgb Conc. 33.8 g/dL (32.0-36.0); Monocytes # (auto) 0.5 uL; Monocytes % (auto) 9.1 % (0.0-12.0); Neutrophils # (auto) 3.4 uL; Neutrophils % (auto) 57.1 % (37.0-80.0); Platelet Count (auto) 272 10^3/uL (140-450); Red Blood Cells 4.62 10^6/uL (4.5-5.90); Red Cell Distribution Width 17.3 % (11.8-14.3); White Blood Cell 5.9 10^3/uL (4.4-10.8)
[2019-06-25 12:24] LABS: Albumin 3.7 g/dL (3.4-5.0); Calcium 9.2 mg/dL (8.5-10.1); Potassium 4.4 mmol/L (3.5-5.1)
[2019-06-25 12:34] LABS: BUN/Creatinine Ratio 23.8; Bilirubin, Total 0.7 mg/dL (0.2-1.0)
== END | disposition home or self-care (01) ==
LOC: LAB 10:21
PROVIDERS: ATTEND Internal Medicine
DX: E78.5 Hyperlipidemia, unspecified (principal); E11.69 Type 2 diabetes mellitus with other specified complication
CPT/HCPCS: 36415; 80053; 80061; 82306; 83036; 83525; 84439; 84443; 85025

== ENCOUNTER 2019-07-03 09:44 | Day surgery (SDC) | payer BC ==
[2019-06-28 09:55] LABS: Basophils # (auto) 0 uL; Basophils % (auto) 0.7 % (0.0-2.0); Eosinophils # (auto) 0.2 uL; Eosinophils % (auto) 4.1 % (0.0-7.0); Hematocrit 39.9 % (41.0-53.0); Hemoglobin 13.4 g/dL (13.5-17.5); Lymphocytes # (auto) 1.9 uL; Lymphocytes % (auto) 35.6 % (10.0-50.0); Mean Corpuscular Hemoglobin 29.3 pg (28.0-32.0); Mean Corpuscular Hgb Conc. 33.6 g/dL (32.0-36.0); Mean Corpuscular Volume 87.2 fL (80.0-100.0); Monocytes # (auto) 0.5 uL; Monocytes % (auto) 8.5 % (0.0-12.0); Neutrophils # (auto) 2.7 uL; Neutrophils % (auto) 51.1 % (37.0-80.0); Nucleated Red Blood Cells % 0.1 %; Platelet Count (auto) 281 10^3/uL (140-450); Red Blood Cells 4.57 10^6/uL (4.5-5.90); Red Cell Distribution Width 16.9 % (11.8-14.3); White Blood Cell 5.4 10^3/uL (4.4-10.8)
[2019-06-28 10:14] LABS: Urine Bacteria NONE SEEN /hpf (None Seen); Urine Blood Negative /uL (Negative); Urine Mucus FEW (None Seen); Urine Specific Gravity 1.017 (1.001-1.035); Urine WBC <1 /hpf (0 - 3)
[2019-06-28 10:17] LABS: Albumin 3.8 g/dL (3.4-5.0); Calcium 9.2 mg/dL (8.5-10.1); Potassium 4.7 mmol/L (3.5-5.1)
[2019-06-28 10:21] LABS: Bilirubin, Total 0.6 mg/dL (0.2-1.0); Total Protein 7.9 g/dL (6.4-8.2)
[2019-06-28 10:25] LABS: INR < 0.93 (0.9-1.15); Partial Thromboplastin Time 29.2 sec (23.64-32.05)
[~2019-07-03] VITALS: Ht 175.3 cm; Wt 73.5 kg
[~2019-07-03 09:44] MED LIST changes: -INSLANTI SC; -LISI-275 PO; +METF-372 PO; -PANT40TA2 PO
[2019-07-03] MEDS ORDERED: SODIUM CHLORIDE LOCK 10 ML ONE (14:13)
[2019-07-03] MEDS ORDERED: PROPOFOL 10 MG/ML 20 ML IV ONE (14:13)
[2019-07-03] MEDS ORDERED: fentaNYL CITRATE 100 MCG/2 ML VL ONE (14:13)
[2019-07-03] MEDS ORDERED: MIDAZOLAM HCL 1MG/1ML-2 ML VIAL ONE (14:13)
[2019-07-03] MEDS ORDERED: ONDANSETRON HCL 4 MG/2 ML VIAL ONE (14:13)
[2019-07-03] MEDS ORDERED: ACCU-CHEK COMFORT CURVE STRIP VI ONE (14:30)
[2019-07-03] MEDS ORDERED: KETOROLAC TROMETH 30 MG/ML 1ML VIAL IV ONE (14:30)
[2019-07-03] MEDS ORDERED: METOCLOPRAMIDE HCL 5MG/ml INJ 2ml VIAL IV PRN (14:30)
[2019-07-03] MEDS ORDERED: fentaNYL CITRATE 100 MCG/2 ML VL IV PRN (14:30)
[2019-07-03] MEDS ORDERED: HYDROmorphone HCL 2 MG/ML VL IV PRN (14:30)
[2019-07-03] MEDS ORDERED: ROPIVACAINE 0.5% (5MG/ML) 20ML AMPULE IJ ONE (14:34)
[2019-07-03] MEDS ORDERED: LIDOCAINE 2% (LOCAL ANESTH.) PF 5ml SDV ONE (14:40)
[2019-07-03] MEDS ORDERED: ceFAZolin 1GM VL ONE (14:52)
[2019-07-03 15:41] VITALS: BP 117/69
== END 2019-07-03 15:51 | disposition home or self-care (01) ==
LOC: SUR 09:44
PROVIDERS: ATTEND Podiatrist Foot & Ankle Surgery
DX: E11.621 Type 2 diabetes mellitus with foot ulcer (principal); I10 Essential (primary) hypertension; E78.5 Hyperlipidemia, unspecified; D64.9 Anemia, unspecified; Z98.890 Other specified postprocedural states; Z79.84 Long term (current) use of oral hypoglycemic drugs
CPT/HCPCS: 15004; 15275; 36415; 80053; 81001; 82962; 85025; 85610; 85730; 88304; 88312; 88313; 93005; C1887; J0690; J2001; J2250; J2405; J2704; J3010; Q4126

== ENCOUNTER → 2020-01-13 | Outpatient (CLI) | payer BC ==
[2020-01-13 08:26] LABS: Urine WBC None Seen /hpf (0 - 3)
[2020-01-13 08:40] LABS: Basophils # (auto) 0 uL; Basophils % (auto) 0.7 % (0.0-2.0); Eosinophils # (auto) 0.2 uL; Eosinophils % (auto) 3.7 % (0.0-7.0); Hematocrit 42.8 % (41.0-53.0); Hemoglobin 14.6 g/dL (13.5-17.5); Lymphocytes # (auto) 1.8 uL; Lymphocytes % (auto) 30.8 % (10.0-50.0); Mean Corpuscular Hemoglobin 31.6 pg (28.0-32.0); Mean Corpuscular Volume 92.8 fL (80.0-100.0); Monocytes # (auto) 0.4 uL; Monocytes % (auto) 7.4 % (0.0-12.0); Neutrophils # (auto) 3.3 uL; Neutrophils % (auto) 57.4 % (37.0-80.0); Platelet Count (auto) 227 10^3/uL (140-450); Red Blood Cells 4.61 10^6/uL (4.5-5.90); Red Cell Distribution Width 13.4 % (11.8-14.3); White Blood Cell 5.7 10^3/uL (4.4-10.8)
[2020-01-13 08:47] LABS: Urine Bacteria NONE SEEN /hpf (None Seen); Urine Blood Negative /uL (Negative); Urine Specific Gravity 1.019 (1.001-1.035)
[2020-01-13 09:01] LABS: Potassium 4.3 mmol/L (3.5-5.1)
[2020-01-13 09:11] LABS: BUN/Creatinine Ratio 30.9; Calcium 9.3 mg/dL (8.5-10.1)
== END | disposition home or self-care (01) ==
LOC: LAB 07:57
PROVIDERS: ATTEND Internal Medicine
DX: E11.22 Type 2 diabetes mellitus with diabetic chronic kidney disease (principal); N18.9 Chronic kidney disease, unspecified
CPT/HCPCS: 36415; 80048; 80061; 81001; 82043; 82306; 83036; 84403; 85025

== ENCOUNTER → 2020-01-24 | Outpatient (CLI) | payer BC | END | disposition home or self-care (01) | LOC: XY 08:54 | PROVIDERS: ATTEND Internal Medicine | DX: E11.621 Type 2 diabetes mellitus with foot ulcer (principal); E11.51 Type 2 diabetes mellitus with diabetic peripheral angiopathy without gangrene | CPT/HCPCS: 93925 ==

== ENCOUNTER → 2021-01-08 | Outpatient (CLI) | payer BC ==
[~2021-01-08] MED LIST changes: -ASPI-404 PO; +ASPI-543 PO
[2021-01-08 10:18] LABS: Basophils # (auto) 0 10 ^3/uL (0-0.2); Basophils % (auto) 0.8 % (0.0-2.0); Eosinophils # (auto) 0.2 10 ^3/uL (0-0.8); Eosinophils % (auto) 3.6 % (0.0-7.0); Hematocrit 41.8 % (41.0-53.0); Hemoglobin 14.6 g/dL (13.5-17.5); Lymphocytes # (auto) 1.8 10 ^3/uL (0.4-5.4); Lymphocytes % (auto) 34.6 % (10.0-50.0); Mean Corpuscular Hemoglobin 32.7 pg (28.0-32.0); Mean Corpuscular Hgb Conc. 34.9 g/dL (32.0-36.0); Mean Corpuscular Volume 93.6 fL (80.0-100.0); Monocytes # (auto) 0.4 10 ^3/uL (0-1.3); Monocytes % (auto) 7.1 % (0.0-12.0); Neutrophils # (auto) 2.8 10 ^3/uL (1.6-8.6); Neutrophils % (auto) 53.9 % (37.0-80.0); Platelet Count (auto) 250 10^3/uL (140-450); Red Blood Cells 4.46 10^6/uL (4.5-5.90); Red Cell Distribution Width 13.1 % (11.8-14.3); White Blood Cell 5.1 10^3/uL (4.4-10.8)
[2021-01-08 10:19] LABS: Urine Bacteria NONE SEEN /hpf (None Seen); Urine Blood Negative /uL (Negative); Urine Specific Gravity 1.017 (1.001-1.035); Urine Sperm PRESENT /hpf (None Seen); Urine WBC <1 /hpf (0 - 3)
[2021-01-08 10:34] LABS: Potassium 4.5 mmol/L (3.5-5.1)
[2021-01-08 10:56] LABS: BUN/Creatinine Ratio 28.4; Bilirubin, Total 0.5 mg/dL (0.2-1.0); Calcium 9.5 mg/dL (8.5-10.1); Total Protein 7.7 g/dL (6.4-8.2)
== END | disposition home or self-care (01) ==
LOC: LAB 08:51
PROVIDERS: ATTEND Internal Medicine
DX: E11.22 Type 2 diabetes mellitus with diabetic chronic kidney disease (principal); N18.9 Chronic kidney disease, unspecified
CPT/HCPCS: 36415; 80053; 80061; 81001; 82043; 82306; 83036; 84153; 85025

== ENCOUNTER → 2021-01-12 | Outpatient (CLI) | payer BC | END | disposition home or self-care (01) | LOC: LAB 09:19 | PROVIDERS: ATTEND Internal Medicine | DX: E11.22 Type 2 diabetes mellitus with diabetic chronic kidney disease (principal); N18.9 Chronic kidney disease, unspecified | CPT/HCPCS: 82274 ==

== ENCOUNTER → 2021-09-03 | Outpatient (CLI) | payer BC ==
[~2021-09-03] MED LIST changes: +CHOL1TAB7 PO; +LISI-275 PO
[2021-09-03 09:48] LABS: Basophils # (auto) 0.1 10 ^3/uL (0-0.2); Basophils % (auto) 0.8 % (0.0-2.0); Eosinophils # (auto) 0.2 10 ^3/uL (0-0.8); Eosinophils % (auto) 3.3 % (0.0-7.0); Hematocrit 42.4 % (41.0-53.0); Hemoglobin 14.2 g/dL (13.5-17.5); Lymphocytes # (auto) 2.2 10 ^3/uL (0.4-5.4); Lymphocytes % (auto) 33.4 % (10.0-50.0); Mean Corpuscular Hemoglobin 31.9 pg (28.0-32.0); Mean Corpuscular Hgb Conc. 33.5 g/dL (32.0-36.0); Mean Corpuscular Volume 95.3 fL (80.0-100.0); Monocytes # (auto) 0.5 10 ^3/uL (0-1.3); Monocytes % (auto) 7.2 % (0.0-12.0); Neutrophils # (auto) 3.7 10 ^3/uL (1.6-8.6); Neutrophils % (auto) 55.3 % (37.0-80.0); Red Blood Cells 4.45 10^6/uL (4.5-5.90); Red Cell Distribution Width 13.2 % (11.8-14.3); White Blood Cell 6.6 10^3/uL (4.4-10.8)
[2021-09-03 10:12] LABS: Potassium 4.6 mmol/L (3.5-5.1)
[2021-09-03 10:35] LABS: BUN/Creatinine Ratio 23.9; Bilirubin, Total 0.4 mg/dL (0.2-1.0); Calcium 9.5 mg/dL (8.5-10.1); Total Protein 6.9 g/dL (6.4-8.2)
== END | disposition home or self-care (01) ==
LOC: LAB 09:22
PROVIDERS: ATTEND Internal Medicine
DX: E11.22 Type 2 diabetes mellitus with diabetic chronic kidney disease (principal); N18.9 Chronic kidney disease, unspecified
CPT/HCPCS: 36415; 80053; 80061; 82043; 82306; 83036; 85025

== ENCOUNTER 2021-09-09 09:37 | Day surgery (SDC) | payer BC ==
[2021-09-07 10:30] LABS: Basophils # (auto) 0 10 ^3/uL (0-0.2); Basophils % (auto) 0.5 % (0.0-2.0); Eosinophils # (auto) 0.2 10 ^3/uL (0-0.8); Eosinophils % (auto) 3.2 % (0.0-7.0); Hematocrit 41.8 % (41.0-53.0); Hemoglobin 14.4 g/dL (13.5-17.5); Lymphocytes # (auto) 1.9 10 ^3/uL (0.4-5.4); Lymphocytes % (auto) 26.9 % (10.0-50.0); Mean Corpuscular Hemoglobin 32.5 pg (28.0-32.0); Mean Corpuscular Hgb Conc. 34.4 g/dL (32.0-36.0); Mean Corpuscular Volume 94.4 fL (80.0-100.0); Monocytes # (auto) 0.5 10 ^3/uL (0-1.3); Monocytes % (auto) 7.3 % (0.0-12.0); Neutrophils # (auto) 4.5 10 ^3/uL (1.6-8.6); Neutrophils % (auto) 62.1 % (37.0-80.0); Red Blood Cells 4.43 10^6/uL (4.5-5.90); White Blood Cell 7.2 10^3/uL (4.4-10.8)
[2021-09-07 10:41] LABS: BUN/Creatinine Ratio 25.2; Calcium 9.2 mg/dL (8.5-10.1); Potassium 4.4 mmol/L (3.5-5.1)
[2021-09-07 10:44] LABS: Bilirubin, Total 0.4 mg/dL (0.2-1.0); Total Protein 7.8 g/dL (6.4-8.2)
[~2021-09-09] VITALS: Ht 175.3 cm; Wt 74.8 kg
[~2021-09-09 09:37] MED LIST changes: -FERR-20 PO; -SACC250C PO
[2021-09-09] MEDS ORDERED: SODIUM CHLORIDE LOCK 10 ML ONE (10:52)
[2021-09-09] MEDS ORDERED: diphenhdrAMINE HCL 50 MG/1 ML VL ONE (10:53)
[2021-09-09] MEDS: MIDAZOLAM HCL 5 MG/ML-1ML VIAL ONE ×2 (11:01→11:04)
[2021-09-09] MEDS: fentaNYL CITRATE 100 MCG/2 ML VL ONE ×2 (11:01→11:04)
[2021-09-09 12:00] VITALS: BP 121/71
== END 2021-09-09 12:10 | disposition home or self-care (01) ==
LOC: GI 09:37
PROVIDERS: ATTEND Internal Medicine Gastroenterology
DX: Z12.11 Encounter for screening for malignant neoplasm of colon (principal); D12.8 Benign neoplasm of rectum; K63.5 Polyp of colon; K63.89 Other specified diseases of intestine; E11.9 Type 2 diabetes mellitus without complications; E78.5 Hyperlipidemia, unspecified; Z80.51 Family history of malignant neoplasm of kidney; Z98.890 Other specified postprocedural states; Z79.899 Other long term (current) drug therapy; Z20.822 Contact with and (suspected) exposure to COVID-19
CPT/HCPCS: 36415; 45380; 80053; 82962; 85025; 88305; J1200; J2250; J3010; J7030; U0003; 99152

== ENCOUNTER → 2021-11-10 | Outpatient (CLI) | payer BC ==
[2021-11-10 08:57] LABS: Basophils # (auto) 0.1 10 ^3/uL (0-0.2); Basophils % (auto) 1.1 % (0.0-2.0); Eosinophils # (auto) 0.3 10 ^3/uL (0-0.8); Eosinophils % (auto) 4.9 % (0.0-7.0); Hematocrit 41.4 % (41.0-53.0); Hemoglobin 13.8 g/dL (13.5-17.5); Lymphocytes # (auto) 1.9 10 ^3/uL (0.4-5.4); Lymphocytes % (auto) 35.7 % (10.0-50.0); Mean Corpuscular Hemoglobin 31.8 pg (28.0-32.0); Mean Corpuscular Hgb Conc. 33.4 g/dL (32.0-36.0); Mean Corpuscular Volume 95.3 fL (80.0-100.0); Monocytes # (auto) 0.4 10 ^3/uL (0-1.3); Monocytes % (auto) 7.3 % (0.0-12.0); Neutrophils # (auto) 2.7 10 ^3/uL (1.6-8.6); Nucleated Red Blood Cells % 0.1 %; Red Blood Cells 4.35 10^6/uL (4.5-5.90); Red Cell Distribution Width 13.4 % (11.8-14.3); White Blood Cell 5.3 10^3/uL (4.4-10.8)
[2021-11-10 09:42] LABS: Calcium 9.1 mg/dL (8.5-10.1); Potassium 4.4 mmol/L (3.5-5.1)
[2021-11-10 09:47] LABS: Albumin 4.1 g/dL (3.4-5.0); Bilirubin, Total 0.6 mg/dL (0.2-1.0); CRP High Sensitivity 0.04 mg/dL (< 0.3); Total Protein 7.3 g/dL (6.4-8.2)
[2021-11-10 09:54] LABS: Thyroid Stimulating Hormone 3.05 uIU/mL (0.358-3.74)
[2021-11-11 15:15] LABS: Hepatitis A Ab IgM Negative; Hepatitis B Core IgM Negative; Hepatitis C Antibody Negative (Negative)
== END | disposition home or self-care (01) ==
LOC: LAB 08:37
PROVIDERS: ATTEND Internal Medicine
DX: C85.90 Non-Hodgkin lymphoma, unspecified, unspecified site (principal); Z86.2 Personal history of diseases of the blood and blood-forming organs and certain disorders involving the immune mechanism
CPT/HCPCS: 36415; 80053; 80074; 83615; 84436; 84443; 85025; 86038; 86141; 86200

== ENCOUNTER → 2022-04-04 | Outpatient (CLI) | payer BC ==
[2022-04-04 08:34] LABS: Basophils # (auto) 0 10 ^3/uL (0-0.2); Basophils % (auto) 0.6 % (0.0-2.0); Eosinophils # (auto) 0.2 10 ^3/uL (0-0.8); Eosinophils % (auto) 3.9 % (0.0-7.0); Hematocrit 38.2 % (41.0-53.0); Hemoglobin 13.4 g/dL (13.5-17.5); Lymphocytes # (auto) 2.2 10 ^3/uL (0.4-5.4); Lymphocytes % (auto) 35.6 % (10.0-50.0); Mean Corpuscular Hemoglobin 32.7 pg (28.0-32.0); Mean Corpuscular Hgb Conc. 35.1 g/dL (32.0-36.0); Mean Corpuscular Volume 93.2 fL (80.0-100.0); Monocytes # (auto) 0.4 10 ^3/uL (0-1.3); Monocytes % (auto) 6.5 % (0.0-12.0); Neutrophils # (auto) 3.3 10 ^3/uL (1.6-8.6); Neutrophils % (auto) 53.4 % (37.0-80.0); Nucleated Red Blood Cells % 0.2 %; Red Cell Distribution Width 12.9 % (11.8-14.3); White Blood Cell 6.1 10^3/uL (4.4-10.8)
[2022-04-04 08:56] LABS: Potassium 4.2 mmol/L (3.5-5.1)
[2022-04-04 09:02] LABS: Albumin 3.8 g/dL (3.4-5.0); BUN/Creatinine Ratio 34.2; Bilirubin, Total 0.4 mg/dL (0.2-1.0); Calcium 9.2 mg/dL (8.5-10.1); Total Protein 7.4 g/dL (6.4-8.2)
[2022-04-05 11:07] LABS: Immunoglobulin G, Serum 948 mg/dL (603-1613)
== END | disposition home or self-care (01) ==
LOC: LAB 07:58
PROVIDERS: ATTEND Internal Medicine
DX: E11.22 Type 2 diabetes mellitus with diabetic chronic kidney disease (principal); C85.90 Non-Hodgkin lymphoma, unspecified, unspecified site; Z86.2 Personal history of diseases of the blood and blood-forming organs and certain disorders involving the immune mechanism
CPT/HCPCS: 36415; 80053; 82784; 83036; 83615; 85025; 86334

== ENCOUNTER → 2022-12-23 | Outpatient (CLI) | payer BC ==
[2022-12-23 08:54] LABS: Urine WBC None Seen /hpf (0 - 3)
[2022-12-23 09:01] LABS: Basophils # (auto) 0 10 ^3/uL (0-0.2); Basophils % (auto) 0.6 % (0.0-2.0); Eosinophils # (auto) 0.2 10 ^3/uL (0-0.8); Eosinophils % (auto) 3.8 % (0.0-7.0); Hematocrit 44.5 % (41.0-53.0); Hemoglobin 14.8 g/dL (13.5-17.5); Lymphocytes # (auto) 1.7 10 ^3/uL (0.4-5.4); Lymphocytes % (auto) 29.9 % (10.0-50.0); Mean Corpuscular Hemoglobin 31.2 pg (28.0-32.0); Mean Corpuscular Hgb Conc. 33.3 g/dL (32.0-36.0); Mean Corpuscular Volume 93.9 fL (80.0-100.0); Monocytes # (auto) 0.4 10 ^3/uL (0-1.3); Monocytes % (auto) 7.8 % (0.0-12.0); Neutrophils # (auto) 3.3 10 ^3/uL (1.6-8.6); Neutrophils % (auto) 57.9 % (37.0-80.0); Nucleated Red Blood Cells % 0.1 %; Red Blood Cells 4.74 10^6/uL (4.5-5.90); Red Cell Distribution Width 13.2 % (11.8-14.3); White Blood Cell 5.7 10^3/uL (4.4-10.8)
[2022-12-23 09:02] LABS: Urine Bacteria NONE SEEN /hpf (None Seen); Urine Blood Negative /uL (Negative)
[2022-12-23 09:48] LABS: Albumin 4.1 g/dL (3.4-5.0); Calcium 9.1 mg/dL (8.5-10.1); Potassium 4.2 mmol/L (3.5-5.1)
[2022-12-23 09:53] LABS: Bilirubin, Total 0.4 mg/dL (0.2-1.0); Total Protein 7.3 g/dL (6.4-8.2)
== END | disposition home or self-care (01) ==
LOC: LAB 08:38
PROVIDERS: ATTEND Internal Medicine
DX: E11.22 Type 2 diabetes mellitus with diabetic chronic kidney disease (principal); N18.9 Chronic kidney disease, unspecified
CPT/HCPCS: 36415; 80053; 80061; 81001; 82043; 82306; 82607; 84443; 85025

== ENCOUNTER → 2023-04-14 | Outpatient (CLI) | payer BC ==
[2023-04-14 10:47] LABS: Calcium 9.4 mg/dL (8.5-10.1)
[2023-04-14 10:51] LABS: Urine Bacteria NONE SEEN /hpf (None Seen); Urine Blood Negative /uL (Negative); Urine Mucus FEW (None Seen); Urine Specific Gravity 1.019 (1.001-1.035); Urine Sperm PRESENT /hpf (None Seen); Urine WBC 1 /hpf (0 - 3)
[2023-04-14 10:54] LABS: BUN/Creatinine Ratio 33.9 (10.0-20.0); Bilirubin, Total 0.3 mg/dL (0.2-1.0)
== END | disposition home or self-care (01) ==
LOC: LAB 10:01
PROVIDERS: ATTEND Internal Medicine
DX: E11.22 Type 2 diabetes mellitus with diabetic chronic kidney disease (principal); N18.9 Chronic kidney disease, unspecified
CPT/HCPCS: 36415; 80053; 80061; 81001; 82043; 82607; 83036

== ENCOUNTER → 2023-09-13 | Day surgery (SDC) | payer BC ==
[2023-09-12 09:36] LABS: Urine WBC None Seen /hpf (0 - 3)
[2023-09-12 09:53] LABS: Basophils # (auto) 0 10 ^3/uL (0-0.2); Basophils % (auto) 0.4 % (0.0-2.0); Eosinophils # (auto) 0.2 10 ^3/uL (0-0.8); Eosinophils % (auto) 2.9 % (0.0-7.0); Hematocrit 43.1 % (41.0-53.0); Hemoglobin 14.4 g/dL (13.5-17.5); Lymphocytes # (auto) 1.4 10 ^3/uL (0.4-5.4); Lymphocytes % (auto) 19.1 % (10.0-50.0); Mean Corpuscular Hemoglobin 31.6 pg (28.0-32.0); Mean Corpuscular Hgb Conc. 33.4 g/dL (32.0-36.0); Mean Corpuscular Volume 94.8 fL (80.0-100.0); Monocytes # (auto) 0.6 10 ^3/uL (0-1.3); Monocytes % (auto) 8.3 % (0.0-12.0); Neutrophils % (auto) 69.3 % (37.0-80.0); Red Blood Cells 4.55 10^6/uL (4.5-5.90); Red Cell Distribution Width 13.7 % (11.8-14.3); White Blood Cell 7.2 10^3/uL (4.4-10.8)
[2023-09-12 10:16] LABS: Partial Thromboplastin Time 28.2 SEC (24.5-34.5); Prothrombin Time 10.5 sec (9.3-11.8)
[2023-09-12 10:22] LABS: Alanine Aminotransferase 22 U/L (7-40); Albumin 4.6 g/dL (3.2-4.8); Alkaline Phosphatase 38 U/L (46-116); Anion Gap 6 (5-15); Aspartate Aminotransferase 19 U/L (13-40); BUN/Creatinine Ratio 22.9 (10.0-20.0); Bilirubin, Total 0.6 mg/dL (0.2-1.0); Blood Urea Nitrogen 27 mg/dL (9-23); Calcium 9.8 mg/dL (8.5-10.1); Carbon Dioxide 26 mmol/L (20-30); Chloride 104 mmol/L (98-107); Glucose 129 mg/dL (74-106); Potassium 4.8 mmol/L (3.5-5.1); Sodium 136 mmol/L (136-145); Total Protein 7.2 g/dL (5.7-8.2)
[2023-09-12 10:25] LABS: Urine Bacteria NONE SEEN /hpf (None Seen); Urine Blood Negative /uL (Negative); Urine Clarity Clear (Clear); Urine Color Colorless (Yellow); Urine Protein, UAD Negative (Negative); Urine Specific Gravity 1.021 (1.001-1.035); Urine Sperm PRESENT /hpf (None Seen); Urine Urobilinogen Normal (Negative); Urine pH 5.5 (5.0-8.0)
[~2023-09-13] VITALS: Ht 175.3 cm; Wt 74.8 kg
[~2023-09-13] MED LIST changes: +ACE3T PO; +APPLCAP PO; +BUPIVACAINE 0.5% P/F INJ 10 ML VIAL ONE; +CHOL100067 PO; -CHOL1TAB7 PO; +COEN100C30 PO; +EPINEPHrine HCL 1 MG/1 ML AMP ONE; +HYDROmorphone HCL 2 MG/ML VL/or syr IV PRN; +LIDOCAINE 1% HCL (LOCAL ANESTH.) INJ 20ML MDV ONE; +MEPERIDINE HCL (25 MG/ML) 1ML VIAL IV PRN; -METF-372 PO; +MULT-902 OR; +ONDANSETRON HCL 4 MG/2 ML VIAL IV PRN; +PROPOFOL 10 MG/ML 20 ML IV ONE; +SPECCAP4 OR; +TURM500C3 OR; +ZINC100T5 PO; +ceFAZolin 1GM/50ML 100 ML IV ONE; +ePHEDrine SULFATE 50 MG/ML AMP ONE; +fentaNYL CITRATE 100 MCG/2 ML VL ONE
[2023-09-13 07:57] VITALS: PULSE 100; RESP 15; TEMP 97.2; O2SAT 99
[2023-09-13 08:58] VITALS: BP 153/73; PULSE 89; RESP 10; O2SAT 96
== END | disposition home or self-care (01) ==
LOC: SUR 06:13
PROVIDERS: ATTEND Surgery
DX: C44.519 Basal cell carcinoma of skin of other part of trunk (principal); E11.9 Type 2 diabetes mellitus without complications; E78.5 Hyperlipidemia, unspecified; Z79.84 Long term (current) use of oral hypoglycemic drugs
CPT/HCPCS: 11604; 36415; 80053; 81001; 82962; 85025; 85610; 85730; 88302; J0171; J0690; J2001; J2704; J3010; J3490

== ENCOUNTER → 2024-06-07 | Outpatient (CLI) | payer BC ==
[~2024-06-07] MED LIST changes: -BUPIVACAINE 0.5% P/F INJ 10 ML VIAL ONE; -COEN100C30 PO; +COEN100C33 PO; -EPINEPHrine HCL 1 MG/1 ML AMP ONE; -HYDROmorphone HCL 2 MG/ML VL/or syr IV PRN; -LIDOCAINE 1% HCL (LOCAL ANESTH.) INJ 20ML MDV ONE; -MEPERIDINE HCL (25 MG/ML) 1ML VIAL IV PRN; -ONDANSETRON HCL 4 MG/2 ML VIAL IV PRN; -PROPOFOL 10 MG/ML 20 ML IV ONE; -ceFAZolin 1GM/50ML 100 ML IV ONE; -ePHEDrine SULFATE 50 MG/ML AMP ONE; -fentaNYL CITRATE 100 MCG/2 ML VL ONE
[2024-06-07 08:00] LABS: Urine Bacteria None Seen /hpf (None Seen)
[2024-06-07 08:21] LABS: Basophils # (auto) 0.1 10 ^3/uL (0-0.2); Basophils % (auto) 0.8 % (0.0-2.0); Eosinophils # (auto) 0.3 10 ^3/uL (0-0.8); Eosinophils % (auto) 3.9 % (0.0-7.0); Hematocrit 40.8 % (41.0-53.0); Hemoglobin 14.2 g/dL (13.5-17.5); Lymphocytes # (auto) 1.9 10 ^3/uL (0.4-5.4); Lymphocytes % (auto) 28.7 % (10.0-50.0); Mean Corpuscular Hemoglobin 32.7 pg (28.0-32.0); Mean Corpuscular Hgb Conc. 34.8 g/dL (32.0-36.0); Mean Corpuscular Volume 93.7 fL (80.0-100.0); Monocytes # (auto) 0.4 10 ^3/uL (0-1.3); Monocytes % (auto) 6.8 % (0.0-12.0); Neutrophils # (auto) 3.9 10 ^3/uL (1.6-8.6); Neutrophils % (auto) 59.8 % (37.0-80.0); Red Blood Cells 4.36 10^6/uL (4.5-5.90); Red Cell Distribution Width 13.4 % (11.8-14.3); White Blood Cell 6.5 10^3/uL (4.4-10.8)
[2024-06-07 08:31] LABS: Urine Blood Negative /uL (Negative); Urine Clarity Clear (Clear); Urine Color Light-Yellow (Yellow); Urine Mucus FEW (None Seen); Urine Protein, UAD Negative (Negative); Urine Specific Gravity 1.014 (1.001-1.035); Urine Urobilinogen Normal (Negative); Urine WBC 1 /hpf (0 - 3)
[2024-06-07 09:14] LABS: Alanine Aminotransferase 19 U/L (7-40); Albumin 4.6 g/dL (3.2-4.8); Alkaline Phosphatase 43 U/L (46-116); Anion Gap 7 (5-15); Aspartate Aminotransferase 15 U/L (13-40); Blood Urea Nitrogen 22 mg/dL (9-23); Calcium 10.1 mg/dL (8.7-10.4); Carbon Dioxide 24 mmol/L (20-30); Chloride 104 mmol/L (98-107); Glucose 126 mg/dL (74-106); Potassium 4.4 mmol/L (3.5-5.1); Sodium 135 mmol/L (136-145); Triglycerides 98 mg/dL (< 150)
[2024-06-07 09:15] LABS: Bilirubin, Total 0.7 mg/dL (0.2-1.0); Cholesterol 124 mg/dL (< 200); HDL Cholesterol 45 mg/dL (40-59); Total Protein 6.9 g/dL (5.7-8.2)
[2024-06-07 09:27] LABS: LDL Cholesterol 60 mg/dL (< 100)
== END | disposition home or self-care (01) ==
LOC: LAB 07:26
PROVIDERS: ATTEND Internal Medicine
DX: E11.42 Type 2 diabetes mellitus with diabetic polyneuropathy (principal); E78.5 Hyperlipidemia, unspecified
CPT/HCPCS: 36415; 80053; 80061; 81001; 83036; 84439; 84443; 85025

== ENCOUNTER → 2024-08-02 | Outpatient (CLI) | payer BC ==
[2024-08-02 11:01] LABS: Basophils # (auto) 0 10 ^3/uL (0-0.2); Basophils % (auto) 0.9 % (0.0-2.0); Eosinophils # (auto) 0.1 10 ^3/uL (0-0.8); Eosinophils % (auto) 2.5 % (0.0-7.0); Hematocrit 42.4 % (41.0-53.0); Hemoglobin 14.6 g/dL (13.5-17.5); Lymphocytes # (auto) 1.2 10 ^3/uL (0.4-5.4); Lymphocytes % (auto) 22.2 % (10.0-50.0); Mean Corpuscular Hemoglobin 32.5 pg (28.0-32.0); Mean Corpuscular Hgb Conc. 34.4 g/dL (32.0-36.0); Mean Corpuscular Volume 94.5 fL (80.0-100.0); Monocytes # (auto) 0.4 10 ^3/uL (0-1.3); Monocytes % (auto) 7.1 % (0.0-12.0); Neutrophils # (auto) 3.6 10 ^3/uL (1.6-8.6); Neutrophils % (auto) 67.3 % (37.0-80.0); Platelet Count (auto) 261 10^3/uL (140-450); Red Blood Cells 4.49 10^6/uL (4.5-5.90); Red Cell Distribution Width 13.4 % (11.8-14.3); White Blood Cell 5.4 10^3/uL (4.4-10.8)
[2024-08-02 11:54] LABS: Alanine Aminotransferase 30 U/L (7-40); Albumin 4.8 g/dL (3.2-4.8); Alkaline Phosphatase 45 U/L (46-116); Anion Gap 7 (5-15); Aspartate Aminotransferase 18 U/L (13-40); BUN/Creatinine Ratio 18.9 (10.0-20.0); Bilirubin, Total 0.7 mg/dL (0.2-1.0); Blood Urea Nitrogen 24 mg/dL (9-23); Calcium 10.2 mg/dL (8.7-10.4); Carbon Dioxide 27 mmol/L (20-30); Chloride 104 mmol/L (98-107); Glucose 137 mg/dL (74-106); Potassium 4.5 mmol/L (3.5-5.1); Sodium 138 mmol/L (136-145)
[2024-08-02 11:55] LABS: Total Protein 7.3 g/dL (5.7-8.2)
== END | disposition home or self-care (01) ==
LOC: LAB 09:48
PROVIDERS: ATTEND Internal Medicine
DX: C85.90 Non-Hodgkin lymphoma, unspecified, unspecified site (principal); Z86.2 Personal history of diseases of the blood and blood-forming organs and certain disorders involving the immune mechanism
CPT/HCPCS: 36415; 80053; 83615; 85025